=== PATIENT | female | born 1995 | race Two or more races ===

== ENCOUNTER 2022-12-02 09:17 | Emergency (ER) | payer OTHER ==
[2022-12-02 09:46] LABS: BILIRUBIN,URINE NEGATIVE (NEGATIVE); GLUCOSE, URINE (UA) NEGATIVE (NEGATIVE); KETONES,URINE (UA) NEGATIVE (NEGATIVE); LEUKOCYTE ESTERASE, URINE NEGATIVE (NEGATIVE); NITRITE,URINE NEGATIVE (NEGATIVE); OCCULT BLOOD,URINE SMALL (NEGATIVE); PROTEIN,URINE TRACE mg/dL (NEGATIVE); UROBILINOGEN,URINE 0.2 (NORMAL) E.U./dL (NORMAL)
[2022-12-02 09:47] LABS: CLARITY,URINE CLEAR (CLEAR); HCG UR QUAL NEGATIVE
[2022-12-02 10:00] LABS: BACTERIA,URINE Rare /HPF (None Seen); RBC,URINE 0-5 /HPF (0-5); SQUAMOUS EPITHELIAL CELL,UR MANY Squamous (<= Few)
[2022-12-02] MEDS ORDERED: SODIUM CHLORIDE 0.9% 1,000 ML IV STA (10:27)
[2022-12-02] MEDS ORDERED: ONDANSETRON 4 MG/2 ML VIAL IVP STA (10:27)
[2022-12-02] MEDS ORDERED: KETOROLAC 30 MG/ML VIAL IVP STA (10:27)
[2022-12-02] MEDS ORDERED: ACETAMINOPHEN 325 MG TABLET PO STA (10:27)
[2022-12-02] MEDS ORDERED: KETOROLAC 15 MG/ML VIAL IVP STA (10:30)
[2022-12-02 10:43] LABS: BASOPHILS % (AUTO) 0.2 %; HGB - HEMOGLOBIN 13.7 g/dL (12.0-16.0); LYMPHOCYTES % (AUTO) 6.3 %; MEAN CORPUSCULAR HEMOGLOBIN 31.3 pg (27.0-31.0); MEAN CORPUSCULAR HGB CONC 33.4 g/dL (32.0-36.0); MEAN CORPUSCULAR VOLUME 93.6 fL (81.0-99.0); MEAN PLATELET VOLUME 9.8 fL (7.9-10.8); MONOCYTES % (AUTO) 8.3 %; PLT - PLATELET COUNT 208 10^3/uL (130-450); RED BLOOD COUNT 4.38 10^6/uL (4.20-5.40); RED CELL DISTRIBUTION WIDTH 12.5 % (12.0-15.0); WHITE BLOOD COUNT 23.9 x10^3/uL (4.8-10.8)
[2022-12-02 10:45] LABS: SLIDE REVIEW? Indicated
[2022-12-02 10:47] LABS: ABNORMAL LYMPHS % (MANUAL) 0 %
[2022-12-02 10:56] LABS: ALBUMIN/GLOBULIN RATIO 1.5 (1.0-2.2); BILIRUBIN,TOTAL 0.8 mg/dL (0.2-1.0); CALCIUM 9.3 mg/dL (8.5-10.3); CREATININE 0.8 mg/dL (0.6-1.3); POTASSIUM 3.6 mmol/L (3.5-4.5); TOTAL PROTEIN 6.7 g/dL (6.4-8.9)
[2022-12-02 11:05] LABS: BAND NEUTROPHILS % (MANUAL) 7 %; LYMPHOCYTES # (MANUAL) 1.2 10^3/uL (1.5-3.5); LYMPHOCYTES % (MANUAL) 5 %; MONOCYTES # (MANUAL) 1.7 10^3/uL (0.0-1.0); PLATELET MORPHOLOGY NORMAL APPEARANCE (NORMAL); RBC MORPHOLOGY (MULTIPLE) NORMAL APPEARANCE (NORMAL)
[2022-12-02 11:06] LABS: DIFFERENTIAL COMMENT MANUAL DIFFERENTIAL; PLATELET ESTIMATE, MANUAL NORMAL (130-450,000) (NORMAL); WBC MORPHOLOGY (MULTIPLE) NORMAL APPEARANCE (NORMAL)
[2022-12-02 11:33] LABS: B. PARAPERTUSSIS- RESP PCR PAN NOT DETECTED; B. PERTUSSIS- RESP PCR PANEL NOT DETECTED; C. PNEUMONIAE- RESP PCR PANEL NOT DETECTED; CORONAVIRUS 229E-RESP PCR NOT DETECTED; CORONAVIRUS HKU1-RESP PCR NOT DETECTED; CORONAVIRUS NL63-RESP PCR NOT DETECTED; CORONAVIRUS OC43-RESP PCR NOT DETECTED; HUMAN METAPNEUMOVIRUS NOT DETECTED; INFLUENZA A- RESP PCR PANEL NOT DETECTED; INFLUENZA B - RESP PCR PANEL NOT DETECTED; M. PNEUMONIAE- RESP PCR PANEL NOT DETECTED; PARAINFLUENZA VIRUS 1 NOT DETECTED; PARAINFLUENZA VIRUS 2 NOT DETECTED; PARAINFLUENZA VIRUS 3 NOT DETECTED; PARAINFLUENZA VIRUS 4 NOT DETECTED; RHINOVIRUS/ENTEROVIRUS DETECTED; RSV- RESP PCR PANEL NOT DETECTED; SARS-CoV-2 -RESP PCR PANEL NOT DETECTED
[2022-12-02 11:49] VITALS: BP 97/57; O2SAT 98
[2022-12-02] MEDS ORDERED: iohexoL-300 100 ML VIAL IVP ONE (12:46)
--- NOTE | 2022-12-02 12:54 | CT Report ---
PROCEDURE: CT abdomen and pelvis with contrast INDICATIONS: LLQ abd pain, fever TECHNIQUE: Helical axial CT of the abdomen and pelvis was obtained after intravenous contrast adminis tration and reformatted in multiple planes. Radiation dose reduction was achieved using automated exp osure control or adjustment of mA and/or kV according to patient size. COMPARISON: 04/15/2022 FINDINGS: Lower thorax: The lung bases are clear. Heart size normal. No hiatal hernia. Liver: Normal in size and attenuation. No contour deformity present. Biliary system: No calcified cholelithiasis or pericholecystic inflammation. No evidence of bile du ct dilatation. Pancreas: Unremarkable without mass or inflammation evident. Spleen: Normal in size and density. Adrenals: Normal morphology and density. Reproductive system: Unremarkable as visualized. Urinary system: Wedge-shaped hypoenhancement of the left kidney with generalized left renal edema an d perinephric stranding, all consistent with acute pyelonephritis. Right kidney unremarkable. No hydr onephrosis bilaterally. Gastrointestinal system: The bowel appears unremarkable with no evidence of bowel obstruction or inf lammation. The stomach appears unremarkable. Appendix: Normal appendix identified Peritoneal spaces: No mesenteric or retroperitoneal adenopathy. No free air. No free fluid. Vasculature: The IVC, aorta and iliac vasculature are unremarkable. Abdominal wall: Abdominal wall is intact without evidence of ventral or inguinal hernias. Musculoskeletal: Normal bone mineralization. No acute fractures. IMPRESSION: Left renal pyelonephritis. No abscess or hydronephrosis. Reviewed by: Kameron Han MD on 12/02/2022 11:53 AM [facility] Approved by: Kameron Han MD on 12/02/2022 11:53 AM [facility] Station ID: [id number]
[2022-12-02] MEDS ORDERED: levoFLOXacin 250 MG TABLET PO STA (13:03)
--- NOTE | 2022-12-02 13:23 | ED Physician Documentation ---
History of Present Illness - Stated complaint Stated Complaint: CHILLS/COLD SWEAT - Chief complaint Chief Complaint: Fever - History obtained from History obtained from: Patient - Additonal information Additional information: The patient comes to the emergency department chief complaint of fever, chills, and left flank pain that started yesterday. She had a wisdom tooth extraction about 3 days ago and states that she has had some swelling and pain in her bilateral mandibular areas but no drainage from the extraction sites, both of which were from the mandible. She states that she has had a mild sore throat, but no rhinorrhea or cough. She has a headache. No dysuria or hematuria. No frequency. She has been trying to drink water. Patient states she does have some nausea, and feels that if she were to try to drink something now, she did not vomiting. No sick contacts. No other complaints at this time. She is otherwise healthy and is not known to be . PD PAST MEDICAL HISTORY - Past Medical History Past Medical History: Yes : Chronic bladder infection - Present Medications Home Medications: Ambulatory Orders Medication Instructions Recorded Confirmed HYDROcod/ACETAM 5/325 [[place] 5/325] 1 - 2 tab PO Q6H PRN #15 tablet 04/15/22 12/02/22 Ibuprofen [Motrin] 600 mg PO Q6H PRN #30 tab 04/15/22 12/02/22 Ondansetron Odt [Zofran] 4 mg TL Q6H PRN #14 tablet 12/02/22 levoFLOXacin [Levaquin] 500 mg PO QD 14 Days #28 tablet 12/02/22 - Allergies Allergies/Adverse Reactions: Allergies Allergy/AdvReac Type Severity Reaction Status Date / Time No Known Drug Allergies Allergy Verified 12/02/22 09:30 - Social History Does the pt smoke?: No Smoking Status: Never smoker PD ED PE NORMAL - Vitals Vital signs reviewed: Yes - General General: Alert and oriented X 3, No acute distress, Well developed/nourished, Other (The patient appears mildly uncomfortable but otherwise no apparent distress.) - HEENT HEENT: Atraumatic, PERRL, EOMI, Moist mucous membranes, Pharynx benign, Other (Bilateral mandibular third molar extraction sites appear to have healthy tissue and without drainage. Moderate edema. Appropriate tenderness. Dentition otherwise good.) - Neck Neck: Supple, no meningeal sign - Cardiac Cardiac: RRR, No murmur, Strong equal pulses - Respiratory Respiratory: No respiratory distress, Clear bilaterally - Abdomen Abdomen: Soft, Non distended, Other (Left flank tenderness, no rebound or guarding.) - Back Back: Other (Mild left CVA tenderness.) - Derm Derm: Normal color, Warm and dry, No rash - Extremities Extremities: No deformity, No edema - Neuro Neuro: Alert and oriented X 3, Other (Grossly intact.) - Psych Psych: Normal mood, Normal affect Results - Vitals Vitals: Vital Signs - 24 hr 12/02/22 12/02/22 09:27 11:41 Temperature 38.2 C H 37.1 C Heart Rate 147 H 105 H Respiratory 20 20 Rate Blood Pressure 118/68 97/57 L O2 Saturation 99 98 Oxygen O2 Source Room air - Labs Labs: Laboratory Tests 12/02/22 12/02/22 12/02/22 09:32 10:20 10:39 WBC 23.9 H RBC 4.38 Hgb 13.7 Hct 41.0 MCV 93.6 MCH 31.3 H MCHC 33.4 RDW 12.5 Plt Count 208 MPV 9.8 Neut # (Auto) Not Reportable Lymph # (Auto) Not Reportable [place] # (Auto) Not Reportable Eos # (Auto) Not Reportable Baso # (Auto) Not Reportable Absolute Nucleated RBC Not Reportable Total Counted 100 Band Neuts % (Manual) 7 Abnorm Lymph % (Manual) 0 Nucleated RBC % Not Reportable Neutrophils # (Manual) 21.0 H Lymphocytes # (Manual) 1.2 L Monocytes # (Manual) 1.7 H Eosinophils # (Manual) 0.0 Basophils # (Manual) 0.0 Differential Comment MANUAL DIFFERENTIAL Manual Slide Review Indicated WBC Morphology NORMAL APPEARANCE Platelet Estimate NORMAL (130-450,000) Platelet Morphology NORMAL APPEARANCE RBC Morph Micro Appear NORMAL APPEARANCE Sodium Potassium Chloride Carbon Dioxide Anion Gap BUN Creatinine Estimated GFR (MDRD) Glucose Calcium Total Bilirubin AST ALT Alkaline Phosphatase Total Protein Albumin Globulin Albumin/Globulin Ratio Lipase Urine Color YELLOW Urine Clarity CLEAR Urine pH 6.0 Ur Specific [place] 1.010 Urine Protein TRACE Urine Glucose (UA) NEGATIVE Urine Ketones NEGATIVE Urine Occult Blood SMALL H Urine Nitrite NEGATIVE Urine Bilirubin NEGATIVE Urine Urobilinogen 0.2 (NORMAL) Ur Leukocyte Esterase NEGATIVE Urine RBC 0-5 Urine WBC 4-5 Ur Squamous Epith Cells MANY Squamous H Urine Bacteria Rare Ur Microscopic Review INDICATED Urine Culture Comments NOT INDICATED Urine HCG, Qual NEGATIVE Nasal Adenovirus (PCR) NOT DETECTED Nasal B. parapertussis DNA (PCR) NOT DETECTED Nasal Coronavir 229E PCR NOT DETECTED Nasal Coronavir HKU1 PCR NOT DETECTED Nasal Coronavir NL63 PCR NOT DETECTED Nasal Coronavir OC43 PCR NOT DETECTED Nasal Enterovir/Rhinovir PCR DETECTED A Nasal Influenza B PCR NOT DETECTED Nasal Influenza A PCR NOT DETECTED Nasal Parainfluen 1 PCR NOT DETECTED Nasal Parainfluen 2 PCR NOT DETECTED Nasal Parainfluen 3 PCR NOT DETECTED Nasal Parainfluen 4 PCR NOT DETECTED Nasal RSV (PCR) NOT DETECTED Nasal B.pertussis DNA PCR NOT DETECTED Nasal C.pneumoniae (PCR) NOT DETECTED [place]vin Human Metapneumo PCR NOT DETECTED Nasal M.pneumoniae (PCR) NOT DETECTED Nasal SARS-CoV-2 (PCR) NOT DETECTED 12/02/22 10:39 WBC RBC Hgb Hct MCV MCH MCHC RDW Plt Count MPV Neut # (Auto) Lymph # (Auto) [place] # (Auto) Eos # (Auto) Baso # (Auto) Absolute Nucleated RBC Total Counted Band Neuts % (Manual) Abnorm Lymph % (Manual) Nucleated RBC % Neutrophils # (Manual) Lymphocytes # (Manual) Monocytes # (Manual) Eosinophils # (Manual) Basophils # (Manual) Differential Comment Manual Slide Review WBC Morphology Platelet Estimate Platelet Morphology RBC Morph Micro Appear Sodium 135 Potassium 3.6 Chloride 103 Carbon Dioxide 25 Anion Gap 7.0 BUN 12 Creatinine 0.8 Estimated GFR (MDRD) 87 L Glucose 121 H Calcium 9.3 Total Bilirubin 0.8 AST 12 ALT 9 L Alkaline Phosphatase 55 Total Protein 6.7 Albumin 4.0 Globulin 2.7 Albumin/Globulin Ratio 1.5 Lipase 11 Urine Color Urine Clarity Urine pH Ur Specific [place] Urine Protein Urine Glucose (UA) Urine Ketones Urine Occult Blood Urine Nitrite Urine Bilirubin Urine Urobilinogen Ur Leukocyte Esterase Urine RBC Urine WBC Ur Squamous Epith Cells Urine Bacteria Ur Microscopic Review Urine Culture Comments Urine HCG, Qual Nasal Adenovirus (PCR) Nasal B. parapertussis DNA (PCR) Nasal Coronavir 229E PCR Nasal Coronavir HKU1 PCR Nasal Coronavir NL63 PCR Nasal Coronavir OC43 PCR Nasal Enterovir/Rhinovir PCR Nasal Influenza B PCR Nasal Influenza A PCR Nasal Parainfluen 1 PCR Nasal Parainfluen 2 PCR Nasal Parainfluen 3 PCR Nasal Parainfluen 4 PCR Nasal RSV (PCR) Nasal B.pertussis DNA PCR Nasal C.pneumoniae (PCR) [place] Human Metapneumo PCR Nasal M.pneumoniae (PCR) Nasal SARS-CoV-2 (PCR) - Rads (name of study) CT abdomen and pelvis with IV contrast Relevant Findings:: Final report received, See rad report (Left pyelonephritis. No hydronephrosis.) PD Medical Decision Making - ED course Complexity details: reviewed results, re-evaluated patient, considered diff erential, d/w patient, d/w family ED course: The patient was started on a liter of IV fluids with administration of IV Zofran and then oral Tylenol. She was also given an IV dose of Toradol. The patient was worked up with labs including ER abdominal panel, CBC, and blood cultures. Respiratory PCR panel was also performed. Urinalysis was performed and mildly contaminated but otherwise negative. Her PCR panel showed a positive rhino/enterovirus. White blood cell count was 23,000, which was the reason for the addition of the blood cultures. CT scan showed pyelonephritis without any evidence of obstruction. The pyelonephritis was on the left, corresponding with the patient's discomfort. I did go and reevaluate the patient he was found to be feeling much better after symptomatic intervention. She was given a dose of Levaquin here in the ED. I discussed with her that her CT has shown significant evidence of left pyelonephritis, despite her negative urinalysis. While this is somewhat unusual, I feel that we should treat as pyelonephritis regardless. The patient also was positive for rhinovirus which certainly could cause fever as well. We have discussed that this will be a self-limited illness, given its viral nature. The patient does understand the importance of taking the antibiotics every day for her pyelo-. We have discussed the need for prompt return to the emergency department, should she feel she is worsening. We discussed fever control at home and the need to stay hydrated. Departure - Departure Disposition: 01 Home, Self Care Clinical Impression: Pyelonephritis, Rhinovirus infection Condition: Stable Instructions: ED Kidney Infec Female, ED Viral Syndrome Prescriptions: levoFLOXacin [Levaquin] 500 mg PO QD 14 Days #28 tablet Ondansetron Odt [Zofran] 4 mg TL Q6H PRN #14 tablet PRN Reason: Nausea / Vomiting Comments: As we discussed, your viral panel is positive for rhinovirus and your CT scan shows a left-sided kidney infection. Given your symptoms, as well as the fact that your white blood cell count is significantly elevated, we should treat the kidney infection with antibiotics, even though your urinalysis actually came out negative. While this is unusual, it does not necessarily mean that you do not have a kidney infection. You have been given your first dose of antibiotics here in the emergency department and will need to take your next dose tomorrow. A prescription for your antibiotics and nausea medicine has been electronically transmitted to the [facility] pharmacy in [place] your request. It is i mportant that you get plenty of water to drink and also, will feel a lot better if you treat the fevers regularly with ibuprofen and/or Tylenol. You may take ibuprofen 600 mg every 6 hours and/or Tylenol 650 mg every 4 hours. These 2 medications are unrelated and will not cause harm if taken together. Please take the nausea medication as needed, preferably before you need to take your other meds in order to increase the chances of the other medications staying down. You will most likely continue to feel ill for the next several days to a week but should start to improve after that. If you feel like you are drastically worsening, then please return for reevaluation.
--- NOTE | 2022-12-03 04:20 | ED Physician Documentation ---
ED Addendum - Addendum Addendum: 12/03/22 04:19 Patient blood cultures reviewed. Positive for gram-negative rods, likely E. coli. Chart reviewed. Patient treated with IV antibiotics here in the emergency department for significant leukocytosis and likely pyelonephritis. Given newly identified bacteremia will have patient return to the emergency department for reevaluation.
== END 2022-12-02 13:44 | disposition home or self-care (01) ==
LOC: ED 09:17
DX: N12 Tubulo-interstitial nephritis, not specified as acute or chronic (principal); B34.8 Other viral infections of unspecified site; R78.81 Bacteremia; Z20.822 Contact with and (suspected) exposure to COVID-19
CPT/HCPCS: 36415; 74177; 80053; 81001; 81025; 83690; 85025; 87040; 87150; 87181; 87633; 96374; 99284; A9270; Q9967; 81003; 87086

== ENCOUNTER 2022-12-03 05:38 | Inpatient (IN) | payer OTHER ==
[2022-12-03] MEDS ORDERED: SODIUM CHLORIDE 0.9% 1,000 ML IV STA ×2 (06:25→07:38)
[2022-12-03] MEDS ORDERED: ACETAMINOPHEN 325 MG TABLET PO STA (06:25)
[2022-12-03 06:46] LABS: BASOPHILS # (AUTO) 0.1 10^3/uL (0.0-0.1); BASOPHILS % (AUTO) 0.3 %; EOSINOPHILS # (AUTO) 0.1 10^3/uL (0.0-0.7); EOSINOPHILS % (AUTO) 0.4 %; HCT - HEMATOCRIT 40.2 % (37.0-47.0); HGB - HEMOGLOBIN 13.1 g/dL (12.0-16.0); LYMPHOCYTES # (AUTO) 1.3 10^3/uL (1.5-3.5); LYMPHOCYTES % (AUTO) 6.5 %; MEAN CORPUSCULAR HGB CONC 32.6 g/dL (32.0-36.0); MONOCYTES # (AUTO) 1.6 10^3/uL (0.0-1.0); MONOCYTES % (AUTO) 8.3 %; NEUTROPHILS # (AUTO) 16.3 10^3/uL (1.5-6.6); NEUTROPHILS % (AUTO) 83.6 %; PLT - PLATELET COUNT 209 10^3/uL (130-450); RED BLOOD COUNT 4.23 10^6/uL (4.20-5.40); RED CELL DISTRIBUTION WIDTH 12.5 % (12.0-15.0); WHITE BLOOD COUNT 19.5 x10^3/uL (4.8-10.8)
[2022-12-03 06:47] LABS: SLIDE REVIEW? Indicated
[2022-12-03 06:50] LABS: BILIRUBIN,URINE NEGATIVE (NEGATIVE); GLUCOSE, URINE (UA) NEGATIVE (NEGATIVE); KETONES,URINE (UA) >=80 mg/dL (NEGATIVE); LEUKOCYTE ESTERASE, URINE NEGATIVE (NEGATIVE); NITRITE,URINE NEGATIVE (NEGATIVE); OCCULT BLOOD,URINE SMALL (NEGATIVE); PROTEIN,URINE 100 mg/dL (NEGATIVE); UROBILINOGEN,URINE 2 E.U./dL (NORMAL)
[2022-12-03 06:59] LABS: CLARITY,URINE CLEAR (CLEAR)
[2022-12-03 07:04] LABS: ALBUMIN 3.9 g/dL (3.2-5.5); ALBUMIN/GLOBULIN RATIO 1.3 (1.0-2.2); BILIRUBIN,TOTAL 0.9 mg/dL (0.2-1.0); CALCIUM 9.6 mg/dL (8.5-10.3); CREATININE 0.8 mg/dL (0.6-1.3); POTASSIUM 3.5 mmol/L (3.5-4.5); TOTAL PROTEIN 6.8 g/dL (6.4-8.9)
[2022-12-03 07:10] LABS: RBC MORPHOLOGY (MULTIPLE) 1+ ANISOCYTOSIS (NORMAL)
[2022-12-03 07:14] LABS: BACTERIA,URINE Few /HPF (None Seen); RBC,URINE 0-5 /HPF (0-5); SQUAMOUS EPITHELIAL CELL,UR MOD Squamous (<= Few); WBC CLUMPS,URINE PRESENT
--- NOTE | 2022-12-03 07:17 | ED Physician Documentation ---
PD HPI ABD PAIN - Stated complaint Stated Complaint: ABNORMAL LABS - Chief complaint Chief Complaint: Fever - History obtained from History obtained from: Patient - History of Present Illness Timing - onset: How many days ago (few) Timing - duration: Days (few) Timing - details: Gradual onset, Still present Quality: Cramping, Aching, Pain Location: Periumbilical, LLQ Radiation: Left flank Improved by: Laying still Worsened by: Moving. No: Breathing Associated symptoms: Fever, Nausea, Dysuria. No: Diarrhea, Constipation Similar symptoms before: Has not had sx before Recently seen: Emergency Dept (seen yesterday with these symptoms and Dx with pyelopnehrotiiis with UA not too bad but CT showing pyelo. Blood cultures showing positive by [facility] for E Coli. Pt called to return to ED. Not feeling much improved at home. Still fever, flank pain, nausea.) Review of Systems Constitutional: reports: Fever, Chills, Myalgias Nose: denies: Rhinorrhea / runny nose, Congestion Throat: denies: Sore throat Respiratory: denies: Cough GI: reports: Abdominal Pain, Nausea. denies: Diarrhea : reports: Dysuria. denies: Discharge Skin: denies: Rash PD PAST MEDICAL HISTORY - Past Medical History Past Medical History: Yes Cardiovascular: None Respiratory: None Endocrine/Autoimmune: None : Chronic bladder infection - Past Surgical History Past Surgical History: Yes HEENT: Other - Present Medications Home Medications: Ambulatory Orders Medication Instructions Recorded Confirmed Ondansetron Odt [Zofran] 4 mg TL Q6H PRN #14 tablet 12/02/22 12/03/22 levoFLOXacin [Levaquin] 500 mg PO QD 14 Days #28 tablet 12/02/22 12/03/22 - Allergies Allergies/Adverse Reactions: Allergies Allergy/AdvReac Type Severity Reaction Status Date / Time No Known Drug Allergies Allergy Verified 12/03/22 06:14 - Social History Does the pt smoke?: No Smoking Status: Never smoker Does the pt drink ETOH?: Yes ETOH Use: Wine, Beer, Liquor Does the pt have substance abuse?: No - Immunizations Immunizations are current?: Yes - POLST Patient has POLST: No PD ED PE NORMAL - Vitals Vital signs reviewed: Yes (tchycardic and febrile initially.) - General General: Alert and oriented X 3, No acute distress, Well developed/nourished - Neck Neck: Supple, no meningeal sign, No adenopathy - Cardiac Cardiac: No murmur. No: RRR (regular but tachy, improved with fluids and TYlenol. ) - Respiratory Respiratory: No respiratory distress, Clear bilaterally - Abdomen Abdomen: Normal bowel sounds, Soft, Non distended, No organomegaly, Other (sometender without guarding suprapubic area. Left flank tender as well. ) - Female Female : Deferred - Rectal Rectal: Deferred - Derm Derm: Normal color, Warm and dry - Extremities Extremities: No edema, No calf tenderness / cord - Neuro Neuro: Alert and oriented X 3, No motor deficit, Normal speech Results - Vitals Vitals: Vital Signs - 24 hr 12/03/22 12/03/22 12/03/22 06:09 07:01 09:00 Temperature 39.4 C H 39.4 C H 36.7 C Heart Rate 144 H 120 H 71 Respiratory 18 16 14 Rate Blood Pressure 109/65 99/65 91/60 O2 Saturation 96 100 100 12/03/22 11:35 Temperature Heart Rate 90 Respiratory 18 Rate Blood Pressure 123/91 H O2 Saturation 100 Oxygen O2 Source Room air - Labs Labs: Microbiology 12/03/22 06:40 Blood Culture - Preliminary Blood - Right Arm 12/03/22 06:30 Blood Culture - Preliminary Blood - Left Arm Laboratory Tests 12/03/22 12/03/22 12/03/22 06:30 06:40 06:40 WBC 19.5 H RBC 4.23 Hgb 13.1 Hct 40.2 MCV 95.0 MCH 31.0 MCHC 32.6 RDW 12.5 Plt Count 209 MPV 10.0 Neut # (Auto) 16.3 H Lymph # (Auto) 1.3 L [place] # (Auto) 1.6 H Eos # (Auto) 0.1 Baso # (Auto) 0.1 Absolute Nucleated RBC 0.00 Nucleated RBC % 0.0 Manual Slide Review Indicated RBC Morph Micro Appear 1+ ANISOCYTOSIS Sodium 137 Potassium 3.5 Chloride 104 Carbon Dioxide 25 Anion Gap 8.0 BUN 11 Creatinine 0.8 Estimated GFR (MDRD) 87 L Glucose 112 H Lactic Acid 1.2 Calcium 9.6 Total Bilirubin 0.9 AST 15 ALT 12 Alkaline Phosphatase 62 Total Protein 6.8 Albumin 3.9 Globulin 2.9 Albumin/Globulin Ratio 1.3 Lipase 12 Urine Color Urine Clarity Urine pH Ur Specific [place] Urine Protein Urine Glucose (UA) Urine Ketones Urine Occult Blood Urine Nitrite Urine Bilirubin Urine Urobilinogen Ur Leukocyte Esterase Urine RBC Urine WBC Urine WBC Clumps Ur Squamous Epith Cells Urine Bacteria Ur Microscopic Review Urine Culture Comments 12/03/22 06:40 WBC RBC Hgb Hct MCV MCH MCHC RDW Plt Count MPV Neut # (Auto) Lymph # (Auto) [place] # (Auto) Eos # (Auto) Baso # (Auto) Absolute Nucleated RBC Nucleated RBC % Manual Slide Review RBC Morph Micro Appear Sodium Potassium Chloride Carbon Dioxide Anion Gap BUN Creatinine Estimated GFR (MDRD) Glucose Lactic Acid Calcium Total Bilirubin AST ALT Alkaline Phosphatase Total Protein Albumin Globulin Albumin/Globulin Ratio Lipase Urine Color YELLOW Urine Clarity CLEAR Urine pH 7.0 Ur Specific [place] 1.015 Urine Protein 100 H Urine Glucose (UA) NEGATIVE Urine Ketones >=80 H Urine Occult Blood SMALL H Urine Nitrite NEGATIVE Urine Bilirubin NEGATIVE Urine Urobilinogen 2 H Ur Leukocyte Esterase NEGATIVE Urine RBC 0-5 Urine WBC 6-10 H Urine WBC Clumps PRESENT Ur Squamous Epith Cells MOD Squamous H Urine Bacteria Few Ur Microscopic Review INDICATED Urine Culture Comments NOT INDICATED PD Medical Decision Making - ED course Complexity details: reviewed old records (ED visit and CT results/report from yesterday. Blood culture reviewed. ), reviewed results, considered differential, d/w patient, d/w continuous improvement consultant (hospitalist) ED course: Seen yesterday for flank pain and fevers with diagnosis UTI/pyelo-. CT scan did not show any stones or obstruction. Started on Levaquin. Still having fevers overnight. Had a positive ZYB blood culture for E. coli and called back. Initially tachycardic and febrile here which improved with IV fluids. White count elevated. Lactic acid normal. Lytes are okay. Had CT yesteday showing pyelonephritis without obstruction nor stones. I did not see need for repeat imaging. She is feeling improved fever and genearl weakness with some IV fluids. Given IV dose of antibiotics. Was given Levaquin yesteday so continued with Quinolone today with IV Cipro. Also IV toradol and Zofran. Departure - Departure Disposition: 66 [facility] DC/Xfer Clinical Impression: Bacteremia, UTI (urinary tract infection) Condition: Stable Record reviewed to determine appropriate education?: Yes Discharge Date/Time: 12/03/22 13:03
[2022-12-03] MEDS ORDERED: KETOROLAC 15 MG/ML VIAL IVP STA (07:38)
[2022-12-03] MEDS ORDERED: ONDANSETRON 4 MG/2 ML VIAL IVP STA (07:38)
[2022-12-03] MEDS ORDERED: CIPROFLOXACIN 400 MG/200 ML 400 MG/200 ML BAG IV STA (07:39)
[2022-12-03] MEDS ORDERED: SODIUM CHLORIDE FLUSH 0.9% 10 ML SYRINGE IVP PRN (12:47)
[2022-12-03] MEDS ORDERED: ONDANSETRON 4 MG/2 ML VIAL IVP PRN (12:47)
--- NOTE | 2022-12-03 12:57 | HISTORY & PHYSICAL EXAMINATION ---
Chief Complaint - Chief Complaint Chief Complaint: Called back to hospital because of positive blood culture History of Present Illness - Admitted From Admitted From:: ED - History Obtained From History obtained from: ED provider and the patient - History of Present Illness HPI Comment/Other: This is a 27-year-old female with a history of UTI from a kidney stone several years ago. She had bilat wisdom teeth removed 4 days ago and did have some pain and still has swelling in that area. She also recently had an upper URI with nasal congestion and a cough. She presented to the ER yesterday afternoon with complaints of a fever and malaise and also L flank pain radiating into her L groin. Her work-up then showed she is Rhinovirus (+), she had a WBC of 23.9 and somewhat abnormal urinalysis, leading to a CT scan abd/pelvis that was read as having pyelonephritis. She was put on oral Levofloxacin and was discharged home. After just several hours, the blood cultures returned positive and she was contacted to come back into the ER now. Upon re-presentation today at 0600, she had a fever of 39.3 C and was tachycardic with rate 144. Blood pressure has been normal. Labs were repeated. Her lactic acid was normal. Her WBC has decreased to 19. The blood cx has been identified as growing E coli. She was given Tylenol and the fever and tachycardia have resolved. The ED provider spoke to me about this patient, to admit to the hospitalist team and treat her E. coli bacteremia, pyelonephritis and her rhinovirus symptoms. History - Past Medical History : reports: Chronic bladder infection, Kidney stones MRSA Hx?: No - Past Surgical History HEENT: reports: Other - Family & Social History Living arrangement: At home Living Situation: With spouse/s.o. Social History Notes: She does not smoke, drinks alcohol socially. She takes no illicit drugs. She is normally on no prescription medicines. She works as a snack bar cashier - Substance History Use: Uses substance without health or social issues: NONE - POLST Patient has POLST: No Meds/Allgy - Home Medications Home Medications: Ambulatory Orders Medication Instructions Recorded Confirmed Ondansetron Odt [Zofran] 4 mg TL Q6H PRN #14 tablet 12/02/22 12/03/22 levoFLOXacin [Levaquin] 500 mg PO QD 14 Days #28 tablet 12/02/22 12/03/22 - Allergies Allergies/Adverse Reactions: Allergies Allergy/AdvReac Type Severity Reaction Status Date / Time No Known Drug Allergies Allergy Verified 12/03/22 06:14 Review of Systems - Constitutional Constitutional: reports: Fever, Chills, Malaise - Ears, Nose & Throat Ears, Nose & Throat: reports: Dental pain (Had wisdom teeth removed sev days ago, still has swelling) - Musculoskeletal Musculoskeletal: reports: Muscle pain, Other (L flank pain) - All Other Systems All Other Systems: reports: Reviewed and negative Exam - Vital Signs Reviewed Vital Signs: Yes Vital Signs: Vital Signs x48h Temp Pulse Resp BP Pulse Ox 12/03/22 11:35 90 18 123/91 H 100 12/03/22 09:00 36.7 C 71 14 91/60 100 12/03/22 07:01 39.4 C H 120 H 16 99/65 100 12/03/22 06:09 39.4 C H 144 H 18 109/65 96 - Physical Exam General Appearance: positive: No acute distress, Alert Eyes Bilateral: positive: Normal inspection ENT: positive: Other (Bilat lower jaw swelling, no tenderness to palp) Neck: positive: Nml inspection, No JVD Respiratory: positive: No respiratory distress, Breath sounds nml Cardiovascular: positive: Regular rate & rhythm, No murmur Abdomen: positive: Nml bowel sounds, No distention, Other (L flank pain) Skin: positive: Warm, Dry Extremities: positive: Non-tender, No pedal edema Neurologic/Psychiatric: positive: Oriented x3, CN's nml (2-12), Motor nml Sepsis Event Note (H) - Evaluation Current Stage of Sepsis: Sepsis Possible source of Sepsis: positive: Genitourinary - Sepsis Criteria Sepsis Criteria: Recorded Temperature greater than 38.3C or Less than 36C, Recorded Heart Rate greater than 90 bpm, WBC count greater than 12,000 or less than 4000 Conclusion/Plan - Problem List (1) Sepsis Conclusion/Plan: Patient presented with tachycardia heart rate 144, fever of 39.4 C and elevated WBC of 23 then 19. The source appears to be her urine and pyelonephritis Plan: Continue with IV fluids Continue with IV antibiotics Follow WBC daily (2) E coli bacteremia Conclusion/Plan: As per (+) blood cultures Plan: Continue with empiric IV antibiotic, will use ceftriaxone Await sensitivity results to tailor antibiotics We will plan to repeat blood cultures in 48 hours to assure that those repeat cultures have negative growth Would plan a 7 to 10-day total course of antibiotics Start a probiotic (3) Pyelonephritis Conclusion/Plan: As per CT imaging Plan: We will give pain medications as needed Continue with the IV antibiotics (4) Rhinovirus infection Conclusion/Plan: Plan: Symptomatic treatment Respiratory droplet isolation will be ordered - Lab Results Fish Bones: 12/03/22 06:40 12/03/22 06:40 - Diagnostic Imaging Results Diagnostic Imaging Results: positive: Final report reviewed - Other Other Results/Comments: Attestation: The patient is expected to be hospitalized for greater than 2 midnights and is expected to be discharged or transferred to another facility wi thin 96 hours: Yes.
[2022-12-03] MEDS: SODIUM CHLORIDE 0.9% 1,000 ML IV SCH ×2 (13:57→23:57)
[2022-12-03] MEDS: ACETAMINOPHEN 325 MG TABLET PO PRN ×2 (15:14→20:27)
--- NOTE | 2022-12-03 16:08 | PHARMACY PROGRESS NOTE ---
- Best Possible Medication History Admit Date and Time: 12/03/22 1247 Processed by: Nursing Medication History completed: Yes Secondary Source(s): Insurance records As the person ultimately responsible for medication therapy, providers are able to order a medication from an existing home medication list in [facility] via the "Reconcile Routine" prior to Confirmation of that medication by aircraft life support fitter. Such practice is discouraged except when the physician, in their clinical judgment, deems that a medical need exists for a medication without regard to previous use.
[2022-12-03] MEDS: SODIUM CHLORIDE FLUSH 0.9% 10 ML SYRINGE IVP SCH (17:12)
[2022-12-03] MEDS ORDERED: HYDROcod/ACETAM 5/325 MG TABLET PO PRN (17:29)
[2022-12-04] MEDS: ACETAMINOPHEN 325 MG TABLET PO PRN ×3 (05:36→18:40)
[2022-12-04 05:47] LABS: BASOPHILS % (AUTO) 0.3 %; EOSINOPHILS % (AUTO) 0.1 %; HCT - HEMATOCRIT 32.3 % (37.0-47.0); HGB - HEMOGLOBIN 10.8 g/dL (12.0-16.0); LYMPHOCYTES % (AUTO) 9.9 %; MEAN CORPUSCULAR HEMOGLOBIN 31.8 pg (27.0-31.0); MEAN CORPUSCULAR HGB CONC 33.4 g/dL (32.0-36.0); MEAN PLATELET VOLUME 10.1 fL (7.9-10.8); MONOCYTES # (AUTO) 0.8 10^3/uL (0.0-1.0); MONOCYTES % (AUTO) 7.8 %; NEUTROPHILS # (AUTO) 8.4 10^3/uL (1.5-6.6); NEUTROPHILS % (AUTO) 81.1 %; PLT - PLATELET COUNT 158 10^3/uL (130-450); RED CELL DISTRIBUTION WIDTH 12.6 % (12.0-15.0); WHITE BLOOD COUNT 10.3 x10^3/uL (4.8-10.8)
[2022-12-04 05:53] LABS: INR 1.4 (0.8-1.2); PT - PROTHROMBIN TIME 14.9 secs (9.9-12.6)
[2022-12-04 06:00] LABS: CALCIUM 8.4 mg/dL (8.5-10.3); CREATININE 0.6 mg/dL (0.6-1.3); MAGNESIUM 1.6 mg/dL (1.7-2.3); POTASSIUM 3.5 mmol/L (3.5-4.5)
--- NOTE | 2022-12-04 09:27 | PROVIDER PROGRESS NOTE ---
Assessment/Plan - Problem List (1) Sepsis Qualifiers: Sepsis type: Escherichia coli Severe sepsis shock status: without septic shock Assessment/Plan: Improving Still has tachycardia, had a fever episode today during the day, improved after Tylenol given Continue IV antibiotics and IV fluid (2) E coli bacteremia Assessment/Plan: Improving, however still had fever episode Leukocytosis resolved Continue with IV ceftriaxone Repeat culture tomorrow in the morning Continue IV fluid (3) Pyelonephritis Assessment/Plan: This is a second episode in this year Patient reports history of kidney stone,However at this time there is no stone noted Recommend patient to follow-up with primary care physician if UTI recurrent again, may need to consider of prophylaxis - Current Meds Current Meds: Current Medications Generic Name Dose Route Start Last Admin Trade Name Freq PRN Reason Stop Dose Admin Acetaminophen 650 mg 12/03/22 12:47 12/04/22 05:36 Acetaminophen 325 Mg Tablet PO 650 mg Q4HR PRN Administration Pain 1 to 4, or Fever Hydrocodone Bitart/Acetaminophen 1 tab 12/03/22 17:29 12/03/22 22:50 Hydrocod/Acetam 5/325 Mg Tablet PO 1 tab Q6HR PRN Administration Severe Pain (Level 7-10) Sodium Chloride 1,000 mls @ 100 mls/hr 12/03/22 13:00 12/03/22 23:57 Normal Saline 0.9% IV 100 mls/hr .Q10H ABDOULAYE Administration Sodium Chloride 10 ml 12/03/22 17:00 12/04/22 00:00 Sodium Chloride Flush 0.9% 10 Ml Syringe IVP Not Given 0100,0900,1700 ABDOULAYE - Lab Result Fish Bone Diagrams: 12/04/22 05:34 12/04/22 05:34 Subjective - Subjective Patient Reports: Feeling Better, Back Pain, Fever Objective Vital Signs: Vital Signs - 24 hr 12/03/22 12/03/22 12/03/22 11:35 13:00 13:41 Temperature 36.7 C Heart Rate 90 90 Heart Rate [ Brachial] Heart Rate [ 86 Monitoring electrodes] Respiratory 18 18 Rate Blood Pressure 123/91 H 102/70 Blood Pressure 105/60 [Left Brachial artery] O2 Saturation 100 100 12/03/22 12/03/22 12/03/22 17:00 20:24 21:00 Temperature 38.2 C H 39.3 C H 39.3 C H Heart Rate Heart Rate [ Brachial] Heart Rate [ 100 98 Monitoring electrodes] Respiratory 16 16 Rate Blood Pressure Blood Pressure 117/74 109/69 [Left Brachial artery] O2 Saturation 100 12/03/22 12/03/22 12/03/22 22:13 22:48 23:56 Temperature 39.1 C H 100 C H 37.4 C Heart Rate Heart Rate [ Brachial] Heart Rate [ 90 Monitoring electrodes] Respiratory 16 Rate Blood Pressure Blood Pressure 104/53 L [Left Brachial artery] O2 Saturation 98 12/04/22 12/04/22 12/04/22 05:30 06:21 08:18 Temperature 39.6 C H 37.6 C 37.3 C Heart Rate Heart Rate [ 110 H 102 H Brachial] Heart Rate [ Monitoring electrodes] Respiratory 16 20 Rate Blood Pressure Blood Pressure 118/68 106/64 [Left Brachial artery] O2 Saturation 100 97 Oxygen O2 Source Room air I&O (Last 24 Hrs): Intake and Output Totals x24h 12/02/22 12/03/22 12/04/22 23:59 23:59 23:59 Intake Total 3210.000 120 Output Total 1 Balance 3209.000 120 General: Alert, Oriented x3 HEENT: PERRLA, EOMI Neck: Supple Neuro: Alert, Non Focal Cardiovascular: Regular rate Respiratory: No respiratory distress, Breath sounds nml Abdomen: Normal bowel sounds Extremities: No clubbing, No edema - Results Results: Laboratory Results WBC 10.3 x10^3/uL (4.8-10.8) 12/04/22 05:34 RBC 3.40 10^6/uL (4.20-5.40) L 12/04/22 05:34 Hgb 10.8 g/dL (12.0-16.0) L 12/04/22 05:34 Hct 32.3 % (37.0-47.0) L 12/04/22 05:34 MCV 95.0 fL (81.0-99.0) 12/04/22 05:34 MCH 31.8 pg (27.0-31.0) H 12/04/22 05:34 MCHC 33.4 g/dL (32.0-36.0) 12/04/22 05:34 RDW 12.6 % (12.0-15.0) 12/04/22 05:34 Plt Count 158 10^3/uL (130-450) 12/04/22 05:34 MPV 10.1 fL (7.9-10.8) 12/04/22 05:34 Neut # (Auto) 8.4 10^3/uL (1.5-6.6) H 12/04/22 05:34 Lymph # (Auto) 1.0 10^3/uL (1.5-3.5) L 12/04/22 05:34 [place] # (Auto) 0.8 10^3/uL (0.0-1.0) 12/04/22 05:34 Eos # (Auto) 0.0 10^3/uL (0.0-0.7) 12/04/22 05:34 Baso # (Auto) 0.0 10^3/uL (0.0-0.1) 12/04/22 05:34 Absolute Nucleated RBC 0.00 x10^3/uL 12/04/22 05:34 Nucleated RBC % 0.0 /100WBC 12/04/22 05:34 Manual Slide Review Indicated 12/03/22 06:40 RBC Morph Micro Appear 1+ ANISOCYTOSIS (NORMAL) 12/03/22 06:40 PT 14.9 secs (9.9-12.6) H 12/04/22 05:34 INR 1.4 (0.8-1.2) H 12/04/22 05:34 Sodium 137 mmol/L (135-145) 12/04/22 05:34 Potassium 3.5 mmol/L (3.5-4.5) 12/04/22 05:34 Chloride 108 mmol/L (101-111) 12/04/22 05:34 Carbon Dioxide 22 mmol/L (21-32) 12/04/22 05:34 Anion Gap 7.0 (6-13) 12/04/22 05:34 BUN 11 mg/dL (6-20) 12/04/22 05:34 Creatinine 0.6 mg/dL (0.6-1.3) 12/04/22 05:34 Estimated GFR (MDRD) 122 (>89) 12/04/22 05:34 Glucose 95 mg/dL (74-104) 12/04/22 05:34 Lactic Acid 1.2 mmol/L (0.5-2.2) 12/03/22 06:30 Calcium 8.4 mg/dL (8.5-10.3) L 12/04/22 05:34 Magnesium 1.6 mg/dL (1.7-2.3) L 12/04/22 05:34 Total Bilirubin 0.9 mg/dL (0.2-1.0) 12/03/22 06:40 AST 15 IU/L (10-42) 12/03/22 06:40 ALT 12 IU/L (10-60) 12/03/22 06:40 Alkaline Phosphatase 62 IU/L (42-121) 12/03/22 06:40 Total Protein 6.8 g/dL (6.4-8.9) 12/03/22 06:40 Albumin 3.9 g/dL (3.2-5.5) 12/03/22 06:40 Globulin 2.9 g/dL (2.1-4.2) 12/03/22 06:40 Albumin/Globulin Ratio 1.3 (1.0-2.2) 12/03/22 06:40 Lipase 12 U/L (11-82) 12/03/22 06:40 Urine Color YELLOW 12/03/22 06:40 Urine Clarity CLEAR (CLEAR) 12/03/22 06:40 Urine pH 7.0 PH (5.0-7.5) 12/03/22 06:40 Ur Specific [place] 1.015 (1.002-1.030) 12/03/22 06:40 Urine Protein 100 mg/dL (NEGATIVE) H 12/03/22 06:40 Urine Glucose (UA) NEGATIVE mg/dL (NEGATIVE) 12/03/22 06:40 Urine Ketones >=80 mg/dL (NEGATIVE) H 12/03/22 06:40 Urine Occult Blood SMALL (NEGATIVE) H 12/03/22 06:40 Urine Nitrite NEGATIVE (NEGATIVE) 12/03/22 06:40 Urine Bilirubin NEGATIVE (NEGATIVE) 12/03/22 06:40 Urine Urobilinogen 2 E.U./dL (NORMAL) H 12/03/22 06:40 Ur Leukocyte Esterase NEGATIVE (NEGATIVE) 12/03/22 06:40 Urine RBC 0-5 /HPF (0-5) 12/03/22 06:40 Urine WBC 6-10 /HPF (0-5) H 12/03/22 06:40 Urine WBC Clumps PRESENT 12/03/22 06:40 Ur Squamous Epith Cells MOD Squamous (<= Few) H 12/03/22 06:40 Urine Bacteria Few /HPF (None Seen) 12/03/22 06:40 Ur Microscopic Review INDICATED 12/03/22 06:40 Urine Culture Comments NOT INDICATED 12/03/22 06:40 Sepsis Event Note (H) - Evaluation Current Stage of Sepsis: Sepsis Possible source of Sepsis: positive: Genitourinary - Sepsis Criteria Sepsis Criteria: Recorded Temperature greater than 38.3C or Less than 36C, Recorded Heart Rate greater than 90 bpm, WBC count greater than 12,000 or less than 4000 ABX Reporting Has patient been on IV antibiotics over the past 48 hours?: Yes Current Medications - Current Medications Current Medications: Active Medications Acetaminophen (Acetaminophen 325 Mg Tablet) 650 mg PO Q4HR PRN PRN Reason: Pain 1 to 4, or Fever Last Admin: 12/04/22 13:30 Dose: 650 mg Hydrocodone Bitart/Acetaminophen (Hydrocod/Acetam 5/325 Mg Tablet) 1 tab PO Q6HR PRN PRN Reason: Severe Pain (Level 7-10) Last Admin: 12/03/22 22:50 Dose: 1 tab Chlorhexidine Gluconate (Chlorhexidine Gluconate 15 Ml Udc) 15 ml PO BID [facility] Last Admin: 12/04/22 15:30 Dose: 15 ml Sodium Chloride (Normal Saline 0.9%) 1,000 mls @ 100 mls/hr IV .Q10H [facility] Last Admin: 12/04/22 09:46 Dose: 100 mls/hr Ceftriaxone Sodium 2 gm/ (Sodium Chloride) 100 mls @ 200 mls/hr IV DAILY [facility] Last Infusion: 12/04/22 11:07 Dose: Infused Lactobacillus Rhamnosus (Lactobacillus Rhamnosus Gg Capsule) 1 cap PO DAILY [facility] Last Admin: 12/04/22 09:38 Dose: 1 cap Ondansetron HCl (Ondansetron 4 Mg/2 Ml Vial) 4 mg IVP Q6HR PRN PRN Reason: Nausea / Vomiting Sodium Chloride (Sodium Chloride Flush 0.9% 10 Ml Syringe) 10 ml IVP PRN PRN PRN Reason: NEEDED PER PROVIDER ORDERS Sodium Chloride (Sodium Chloride Flush 0.9% 10 Ml Syringe) 10 ml IVP 0100,0900,1700 [facility] Last Admin: 12/04/22 15:49 Dose: Not Given
[2022-12-04] MEDS ORDERED: MAGNESIUM SULFATE 1 GM in SODIUM CHLORIDE 0.9% 50 ML IV ONE (09:28)
[2022-12-04] MEDS: LACTOBACILLUS RHAMNOSUS GG CAPSULE PO SCH (09:38)
[2022-12-04] MEDS: cefTRIAXone 2 GM in SODIUM CHLORIDE 0.9% MINIBAG 100 ML IV SCH (09:38)
[2022-12-04] MEDS: SODIUM CHLORIDE FLUSH 0.9% 10 ML SYRINGE IVP SCH ×3 (09:43→15:49)
[2022-12-04] MEDS: SODIUM CHLORIDE 0.9% 1,000 ML IV SCH ×2 (09:46→20:31)
[2022-12-04] MEDS ORDERED: MAGNESIUM SULFATE 2 GRAM 2 GM/50 ML BAG IV ONE (11:00)
[2022-12-04] MEDS: CHLORHEXIDINE GLUCONATE 15 ML UDC PO SCH ×2 (15:30→20:31)
[2022-12-04] MEDS ORDERED: CHLORHEXIDINE GLUCONATE 15 ML UDC PO SCH (21:00)
[2022-12-05] MEDS: SODIUM CHLORIDE FLUSH 0.9% 10 ML SYRINGE IVP SCH ×4 (05:09→23:59)
[2022-12-05] MEDS: ACETAMINOPHEN 325 MG TABLET PO PRN ×2 (05:10→14:27)
[2022-12-05] MEDS: SODIUM CHLORIDE 0.9% 1,000 ML IV SCH ×2 (05:11→20:35)
[2022-12-05 05:35] LABS: BASOPHILS # (AUTO) 0.1 10^3/uL (0.0-0.1); BASOPHILS % (AUTO) 0.6 %; EOSINOPHILS % (AUTO) 0.1 %; HCT - HEMATOCRIT 33.3 % (37.0-47.0); HGB - HEMOGLOBIN 10.7 g/dL (12.0-16.0); LYMPHOCYTES # (AUTO) 1.6 10^3/uL (1.5-3.5); LYMPHOCYTES % (AUTO) 19.4 %; MEAN CORPUSCULAR HEMOGLOBIN 30.2 pg (27.0-31.0); MEAN CORPUSCULAR HGB CONC 32.1 g/dL (32.0-36.0); MEAN CORPUSCULAR VOLUME 94.1 fL (81.0-99.0); MEAN PLATELET VOLUME 9.7 fL (7.9-10.8); MONOCYTES # (AUTO) 1.1 10^3/uL (0.0-1.0); MONOCYTES % (AUTO) 13.6 %; NEUTROPHILS # (AUTO) 5.4 10^3/uL (1.5-6.6); NEUTROPHILS % (AUTO) 65.1 %; PLT - PLATELET COUNT 242 10^3/uL (130-450); RED BLOOD COUNT 3.54 10^6/uL (4.20-5.40); RED CELL DISTRIBUTION WIDTH 12.7 % (12.0-15.0); WHITE BLOOD COUNT 8.3 x10^3/uL (4.8-10.8)
[2022-12-05 05:49] LABS: CALCIUM 8.8 mg/dL (8.5-10.3); CREATININE 0.6 mg/dL (0.6-1.3); POTASSIUM 3.1 mmol/L (3.5-4.5)
--- NOTE | 2022-12-05 08:47 | PROVIDER PROGRESS NOTE ---
Assessment/Plan - Problem List (1) Sepsis Qualifiers: Sepsis type: Escherichia coli Severe sepsis shock status: without septic shock Assessment/Plan: Improving Low-grade fever today in the morning otherwise feeling good at Her mouth is still hurting (2) E coli bacteremia Assessment/Plan: Improving Repeat culture today Continue give IV ceftriaxone, total treatment course will be 7 days, may transition to oral antibiotics at time of discharge (3) Pyelonephritis Assessment/Plan: Improving No further back pain, - Current Meds Current Meds: Current Medications Generic Name Dose Route Start Last Admin Trade Name Freq PRN Reason Stop Dose Admin Acetaminophen 650 mg 12/03/22 12:47 12/05/22 05:10 Acetaminophen 325 Mg Tablet PO 650 mg Q4HR PRN Administration Pain 1 to 4, or Fever Hydrocodone Bitart/Acetaminophen 1 tab 12/03/22 17:29 12/03/22 22:50 Hydrocod/Acetam 5/325 Mg Tablet PO 1 tab Q6HR PRN Administration Severe Pain (Level 7-10) Chlorhexidine Gluconate 15 ml 12/04/22 14:30 12/04/22 20:31 Chlorhexidine Gluconate 15 Ml Udc PO 15 ml BID ABDOULAYE Administration Sodium Chloride 1,000 mls @ 100 mls/hr 12/03/22 13:00 12/05/22 05:11 Normal Saline 0.9% IV 100 mls/hr .Q10H ABDOULAYE Administration Ceftriaxone Sodium 2 gm/ 100 mls @ 200 mls/hr 12/04/22 09:00 12/04/22 11:07 Sodium Chloride IV Infused DAILY ABDOULAYE Infusion Lactobacillus Rhamnosus 1 cap 12/04/22 09:00 12/04/22 09:38 Lactobacillus Rhamnosus Gg Capsule PO 1 cap DAILY ABDOULAYE Administration Sodium Chloride 10 ml 12/03/22 17:00 12/05/22 05:09 Sodium Chloride Flush 0.9% 10 Ml Syringe IVP Not Given 0100,0900,1700 ABDOULAYE - Lab Result Lab results reviewed: Yes Fish Bone Diagrams: 12/05/22 05:10 12/05/22 05:10 - Additional Planning My Orders: My Active Orders 12/04/22 14:30 Chlorhexidine [Peridex] 15 ml PO BID 12/04/22 Dinner DIET [Soft Mechanical Diet] [DIET] 12/05/22 05:00 MAGNESIUM [CHEM] Routine 12/05/22 05:10 CULTURE, BLOOD #1 [RM] Routine 12/05/22 05:24 CULTURE, BLOOD #2 [RM] DAILY 12/05/22 09:00 Potassium Chloride [K-Dur] 20 meq PO BID 12/06/22 05:00 BMP - BASIC METABOLIC PANEL [CHEM] DAILYLAB 12/07/22 05:00 BMP - BASIC METABOLIC PANEL [CHEM] DAILYLAB 12/08/22 05:00 BMP - BASIC METABOLIC PANEL [CHEM] DAILYLAB 12/09/22 05:00 BMP - BASIC METABOLIC PANEL [CHEM] DAILYLAB Subjective - Subjective Patient Reports: Feeling Better (Only had mild fever in the morning otherwise feels much improved) Objective Vital Signs: Vital Signs - 24 hr 12/04/22 12/04/22 12/04/22 13:00 15:37 18:39 Temperature 39.6 C H 38.1 C H 37.7 C Heart Rate [ 108 H Apical] Heart Rate [ Brachial] Heart Rate [ 120 H Monitoring electrodes] Respiratory 18 18 Rate Blood Pressure 117/64 118/72 [Left Brachial artery] O2 Saturation 98 99 12/04/22 12/04/22 12/04/22 20:32 20:55 23:41 Temperature 37.8 C 37.6 C 37.4 C Heart Rate [ Apical] Heart Rate [ 95 95 Brachial] Heart Rate [ Monitoring electrodes] Respiratory 20 20 Rate Blood Pressure 121/72 129/71 [Left Brachial artery] O2 Saturation 99 100 12/05/22 12/05/22 12/05/22 04:56 06:00 07:35 Temperature 39.0 C H 37.7 C 37.4 C Heart Rate [ Apical] Heart Rate [ 111 H 101 H Brachial] Heart Rate [ Monitoring electrodes] Respiratory 16 16 Rate Blood Pressure 122/85 H 118/77 [Left Brachial artery] O2 Saturation 100 100 Oxygen O2 Source Room air I&O (Last 24 Hrs): Intake and Output Totals x24h 12/03/22 12/04/22 12/05/22 23:59 23:59 23:59 Intake Total 3210.000 2988.334 710 Output Total 1 Balance 3209.000 2988.334 710 General: Alert, Oriented x3 HEENT: PERRLA, EOMI Neck: Supple, No JVD Cardiovascular: Regular rate Respiratory: No respiratory distress, Breath sounds nml Extremities: No edema - Results Results: Laboratory Results WBC 8.3 x10^3/uL (4.8-10.8) 12/05/22 05:10 RBC 3.54 10^6/uL (4.20-5.40) L 12/05/22 05:10 Hgb 10.7 g/dL (12.0-16.0) L 12/05/22 05:10 Hct 33.3 % (37.0-47.0) L 12/05/22 05:10 MCV 94.1 fL (81.0-99.0) 12/05/22 05:10 MCH 30.2 pg (27.0-31.0) 12/05/22 05:10 MCHC 32.1 g/dL (32.0-36.0) 12/05/22 05:10 RDW 12.7 % (12.0-15.0) 12/05/22 05:10 Plt Count 242 10^3/uL (130-450) 12/05/22 05:10 MPV 9.7 fL (7.9-10.8) 12/05/22 05:10 Neut # (Auto) 5.4 10^3/uL (1.5-6.6) 12/05/22 05:10 Lymph # (Auto) 1.6 10^3/uL (1.5-3.5) 12/05/22 05:10 [place] # (Auto) 1.1 10^3/uL (0.0-1.0) H 12/05/22 05:10 Eos # (Auto) 0.0 10^3/uL (0.0-0.7) 12/05/22 05:10 Baso # (Auto) 0.1 10^3/uL (0.0-0.1) 12/05/22 05:10 Absolute Nucleated RBC 0.00 x10^3/uL 12/05/22 05:10 Nucleated RBC % 0.0 /100WBC 12/05/22 05:10 Manual Slide Review Indicated 12/03/22 06:40 RBC Morph Micro Appear 1+ ANISOCYTOSIS (NORMAL) 12/03/22 06:40 PT 14.9 secs (9.9-12.6) H 12/04/22 05:34 INR 1.4 (0.8-1.2) H 12/04/22 05:34 Sodium 138 mmol/L (135-145) 12/05/22 05:10 Potassium 3.1 mmol/L (3.5-4.5) L 12/05/22 05:10 Chloride 108 mmol/L (101-111) 12/05/22 05:10 Carbon Dioxide 22 mmol/L (21-32) 12/05/22 05:10 Anion Gap 8.0 (6-13) 12/05/22 05:10 BUN 8 mg/dL (6-20) 12/05/22 05:10 Creatinine 0.6 mg/dL (0.6-1.3) 12/05/22 05:10 Estimated GFR (MDRD) 122 (>89) 12/05/22 05:10 Glucose 109 mg/dL (74-104) H 12/05/22 05:10 Lactic Acid 1.2 mmol/L (0.5-2.2) 12/03/22 06:30 Calcium 8.8 mg/dL (8.5-10.3) 12/05/22 05:10 Magnesium 1.6 mg/dL (1.7-2.3) L 12/04/22 05:34 Total Bilirubin 0.9 mg/dL (0.2-1.0) 12/03/22 06:40 AST 15 IU/L (10-42) 12/03/22 06:40 ALT 12 IU/L (10-60) 12/03/22 06:40 Alkaline Phosphatase 62 IU/L (42-121) 12/03/22 06:40 Total Protein 6.8 g/dL (6.4-8.9) 12/03/22 06:40 Albumin 3.9 g/dL (3.2-5.5) 12/03/22 06:40 Globulin 2.9 g/dL (2.1-4.2) 12/03/22 06:40 Albumin/Globulin Ratio 1.3 (1.0-2.2) 12/03/22 06:40 Lipase 12 U/L (11-82) 12/03/22 06:40 Urine Color YELLOW 12/03/22 06:40 Urine Clarity CLEAR (CLEAR) 12/03/22 06:40 Urine pH 7.0 PH (5.0-7.5) 12/03/22 06:40 Ur Specific [place] 1.015 (1.002-1.030) 12/03/22 06:40 Urine Protein 100 mg/dL (NEGATIVE) H 12/03/22 06:40 Urine Glucose (UA) NEGATIVE mg/dL (NEGATIVE) 12/03/22 06:40 Urine Ketones >=80 mg/dL (NEGATIVE) H 12/03/22 06:40 Urine Occult Blood SMALL (NEGATIVE) H 12/03/22 06:40 Urine Nitrite NEGATIVE (NEGATIVE) 12/03/22 06:40 Urine Bilirubin NEGATIVE (NEGATIVE) 12/03/22 06:40 Urine Urobilinogen 2 E.U./dL (NORMAL) H 12/03/22 06:40 Ur Leukocyte Esterase NEGATIVE (NEGATIVE) 12/03/22 06:40 Urine RBC 0-5 /HPF (0-5) 12/03/22 06:40 Urine WBC 6-10 /HPF (0-5) H 12/03/22 06:40 Urine WBC Clumps PRESENT 12/03/22 06:40 Ur Squamous Epith Cells MOD Squamous (<= Few) H 12/03/22 06:40 Urine Bacteria Few /HPF (None Seen) 12/03/22 06:40 Ur Microscopic Review INDICATED 12/03/22 06:40 Urine Culture Comments NOT INDICATED 12/03/22 06:40 Sepsis Event Note (H) - Evaluation Current Stage of Sepsis: Sepsis Possible source of Sepsis: positive: Genitourinary - Sepsis Criteria Sepsis Criteria: Recorded Temperature greater than 38.3C or Less than 36C, Recorded Heart Rate greater than 90 bpm, WBC count greater than 12,000 or less than 4000 ABX Reporting Has patient been on IV antibiotics over the past 48 hours?: Yes Current Medications - Current Medications Current Medications: Active Medications Acetaminophen (Acetaminophen 325 Mg Tablet) 650 mg PO Q4HR PRN PRN Reason: Pain 1 to 4, or Fever Last Admin: 12/05/22 14:27 Dose: 650 mg Hydrocodone Bitart/Acetaminophen (Hydrocod/Acetam 5/325 Mg Tablet) 1 tab PO Q6HR PRN PRN Reason: Severe Pain (Level 7-10) Last Admin: 12/03/22 22:50 Dose: 1 tab Chlorhexidine Gluconate (Chlorhexidine Gluconate 15 Ml Udc) 15 ml PO BID [facility]BD[facility]E Last Admin: 12/05/22 09:30 Dose: 15 ml Sodium Chloride (Normal Saline 0.9%) 1,000 mls @ 100 mls/hr IV .Q10H [facility] Last Admin: 12/05/22 05:11 Dose: 100 mls/hr Ceftriaxone Sodium 2 gm/ (Sodium Chloride) 100 mls @ 200 mls/hr IV DAILY [facility] Last Infusion: 12/05/22 11:15 Dose: Infused Lactobacillus Rhamnosus (Lactobacillus Rhamnosus Gg Capsule) 1 cap PO DAILY [facility] Last Admin: 12/05/22 09:30 Dose: 1 cap Ondansetron HCl (Ondansetron 4 Mg/2 Ml Vial) 4 mg IVP Q6HR PRN PRN Reason: Nausea / Vomiting Potassium Chloride (Potassium Chloride 20 Meq Tablet) 20 meq PO BID [facility] Stop: 12/07/22 08:59 Last Admin: 12/05/22 09:30 Dose: 20 meq Sodium Chloride (Sodium Chloride Flush 0.9% 10 Ml Syringe) 10 ml IVP PRN PRN PRN Reason: NEEDED PER PROVIDER ORDERS Sodium Chloride (Sodium Chloride Flush 0.9% 10 Ml Syringe) 10 ml IVP 0100,0900,1700 [facility] Last Admin: 12/05/22 09:31 Dose: 10 ml
[2022-12-05] MEDS: LACTOBACILLUS RHAMNOSUS GG CAPSULE PO SCH (09:30)
[2022-12-05] MEDS: CHLORHEXIDINE GLUCONATE 15 ML UDC PO SCH ×2 (09:30→21:24)
[2022-12-05] MEDS: POTASSIUM CHLORIDE 20 MEQ TABLET PO SCH ×2 (09:30→21:24)
[2022-12-05] MEDS: cefTRIAXone 2 GM in SODIUM CHLORIDE 0.9% MINIBAG 100 ML IV SCH (09:30)
[2022-12-06] MEDS: ACETAMINOPHEN 325 MG TABLET PO PRN (00:10)
[2022-12-06 05:12] LABS: BASOPHILS % (AUTO) 0.4 %; EOSINOPHILS % (AUTO) 0.4 %; HCT - HEMATOCRIT 33.2 % (37.0-47.0); HGB - HEMOGLOBIN 10.9 g/dL (12.0-16.0); LYMPHOCYTES # (AUTO) 2.9 10^3/uL (1.5-3.5); LYMPHOCYTES % (AUTO) 29.1 %; MEAN CORPUSCULAR HEMOGLOBIN 30.9 pg (27.0-31.0); MEAN CORPUSCULAR HGB CONC 32.8 g/dL (32.0-36.0); MEAN CORPUSCULAR VOLUME 94.1 fL (81.0-99.0); MEAN PLATELET VOLUME 9.5 fL (7.9-10.8); MONOCYTES # (AUTO) 1.4 10^3/uL (0.0-1.0); MONOCYTES % (AUTO) 13.8 %; NEUTROPHILS # (AUTO) 5.4 10^3/uL (1.5-6.6); NEUTROPHILS % (AUTO) 55.6 %; PLT - PLATELET COUNT 248 10^3/uL (130-450); RED BLOOD COUNT 3.53 10^6/uL (4.20-5.40); RED CELL DISTRIBUTION WIDTH 12.7 % (12.0-15.0); WHITE BLOOD COUNT 9.8 x10^3/uL (4.8-10.8)
[2022-12-06 05:28] LABS: CALCIUM 8.9 mg/dL (8.5-10.3); CREATININE 0.5 mg/dL (0.6-1.3); POTASSIUM 3.6 mmol/L (3.5-4.5)
[2022-12-06] MEDS: SODIUM CHLORIDE 0.9% 1,000 ML IV SCH ×2 (06:18→16:14)
[2022-12-06] MEDS: CHLORHEXIDINE GLUCONATE 15 ML UDC PO SCH ×2 (09:27→21:32)
[2022-12-06] MEDS: cefTRIAXone 2 GM in SODIUM CHLORIDE 0.9% MINIBAG 100 ML IV SCH (09:27)
[2022-12-06] MEDS: SODIUM CHLORIDE FLUSH 0.9% 10 ML SYRINGE IVP SCH ×2 (09:27→16:15)
[2022-12-06] MEDS: POTASSIUM CHLORIDE 20 MEQ TABLET PO SCH ×2 (09:27→21:32)
[2022-12-06] MEDS: LACTOBACILLUS RHAMNOSUS GG CAPSULE PO SCH (09:27)
--- NOTE | 2022-12-06 12:03 | PROVIDER PROGRESS NOTE ---
Assessment/Plan - Problem List (1) Sepsis Qualifiers: Sepsis type: Escherichia coli Severe sepsis shock status: without septic shock Assessment/Plan: Improving, however had low-grade fever last night, Continue with IV ceftriaxone Encourage oral intake (2) E coli bacteremia Assessment/Plan: Repeat culture on 12/05/2022 no growth to date Continue IV antibiotics with 5 to 7 days treatment course (3) Pyelonephritis Assessment/Plan: Improving, continue IV antibiotics - Current Meds Current Meds: Current Medications Generic Name Dose Route Start Last Admin Trade Name Freq PRN Reason Stop Dose Admin Acetaminophen 650 mg 12/03/22 12:47 12/06/22 00:10 Acetaminophen 325 Mg Tablet PO 650 mg Q4HR PRN Administration Pain 1 to 4, or Fever Hydrocodone Bitart/Acetaminophen 1 tab 12/03/22 17:29 12/03/22 22:50 Hydrocod/Acetam 5/325 Mg Tablet PO 1 tab Q6HR PRN Administration Severe Pain (Level 7-10) Chlorhexidine Gluconate 15 ml 12/04/22 14:30 12/06/22 09:27 Chlorhexidine Gluconate 15 Ml Udc PO 15 ml BID ABDOULAYE Administration Sodium Chloride 1,000 mls @ 100 mls/hr 12/03/22 13:00 12/06/22 06:18 Normal Saline 0.9% IV 100 mls/hr .Q10H ABDOULAYE Administration Ceftriaxone Sodium 2 gm/ 100 mls @ 200 mls/hr 12/04/22 09:00 12/06/22 09:27 Sodium Chloride IV 200 mls/hr DAILY ABDOULAYE Administration Lactobacillus Rhamnosus 1 cap 12/04/22 09:00 12/06/22 09:27 Lactobacillus Rhamnosus Gg Capsule PO 1 cap DAILY ABDOULAYE Administration Potassium Chloride 20 meq 12/05/22 09:00 12/06/22 09:27 Potassium Chloride 20 Meq Tablet PO 12/07/22 08:59 20 meq BID ABDOULAYE Administration Sodium Chloride 10 ml 12/03/22 17:00 12/06/22 09:27 Sodium Chloride Flush 0.9% 10 Ml Syringe IVP 10 ml 0100,0900,1700 ABDOULAYE Administration - Lab Result Lab results reviewed: Yes Fish Bone Diagrams: 12/06/22 05:00 12/06/22 05:00 - Diagnostic Imaging Results Diagnostic Imaging Results: Final report reviewed - Additional Planning My Orders: My Active Orders 12/06/22 12:00 Multivitamin W/Minerals [Theragran M] 1 tab PO DAILYWM 12/07/22 05:00 BMP - BASIC METABOLIC PANEL [CHEM] DAILYLAB 12/08/22 05:00 BMP - BASIC METABOLIC PANEL [CHEM] DAILYLAB 12/09/22 05:00 BMP - BASIC METABOLIC PANEL [CHEM] DAILYLAB Subjective - Subjective Patient Reports: Feeling Better Nursing Reports: No Complaints Objective Vital Signs: Vital Signs - 24 hr 12/05/22 12/05/22 12/05/22 13:06 14:27 14:58 Temperature 37.7 C 38.9 C H 38.1 C H Heart Rate [ 95 Brachial] Respiratory 16 Rate Blood Pressure 127/81 H [Left Brachial artery] Blood Pressure [Right Brachial artery] O2 Saturation 100 12/05/22 12/05/22 12/06/22 15:36 20:16 00:08 Temperature 37.5 C 37.8 C 38.2 C H Heart Rate [ 94 96 97 Brachial] Respiratory 16 16 16 Rate Blood Pressure [Left Brachial artery] Blood Pressure 128/72 134/78 H 133/85 H [Right Brachial artery] O2 Saturation 99 100 100 12/06/22 12/06/22 12/06/22 01:10 04:59 07:28 Temperature 37.6 C 36.8 C 37.4 C Heart Rate [ 76 73 Brachial] Respiratory 16 16 Rate Blood Pressure [Left Brachial artery] Blood Pressure 121/73 126/73 [Right Brachial artery] O2 Saturation 100 100 Oxygen O2 Source Room air I&O (Last 24 Hrs): Intake and Output Totals x24h 12/04/22 12/05/22 12/06/22 23:59 23:59 23:59 Intake Total 2988.334 3375 1026.667 Balance 2988.334 3375 1026.667 General: Oriented x3 HEENT: PERRLA Neck: No JVD Neuro: Alert, CN 2-12 Grossly Intact Cardiovascular: Regular rate Respiratory: No respiratory distress Extremities: No clubbing Skin: No rashes - Results Results: Laboratory Results WBC 9.8 x10^3/uL (4.8-10.8) 12/06/22 05:00 RBC 3.53 10^6/uL (4.20-5.40) L 12/06/22 05:00 Hgb 10.9 g/dL (12.0-16.0) L 12/06/22 05:00 Hct 33.2 % (37.0-47.0) L 12/06/22 05:00 MCV 94.1 fL (81.0-99.0) 12/06/22 05:00 MCH 30.9 pg (27.0-31.0) 12/06/22 05:00 MCHC 32.8 g/dL (32.0-36.0) 12/06/22 05:00 RDW 12.7 % (12.0-15.0) 12/06/22 05:00 Plt Count 248 10^3/uL (130-450) 12/06/22 05:00 MPV 9.5 fL (7.9-10.8) 12/06/22 05:00 Neut # (Auto) 5.4 10^3/uL (1.5-6.6) 12/06/22 05:00 Lymph # (Auto) 2.9 10^3/uL (1.5-3.5) 12/06/22 05:00 [place] # (Auto) 1.4 10^3/uL (0.0-1.0) H 12/06/22 05:00 Eos # (Auto) 0.0 10^3/uL (0.0-0.7) 12/06/22 05:00 Baso # (Auto) 0.0 10^3/uL (0.0-0.1) 12/06/22 05:00 Absolute Nucleated RBC 0.00 x10^3/uL 12/06/22 05:00 Nucleated RBC % 0.0 /100WBC 12/06/22 05:00 Manual Slide Review Indicated 12/03/22 06:40 RBC Morph Micro Appear 1+ ANISOCYTOSIS (NORMAL) 12/03/22 06:40 PT 14.9 secs (9.9-12.6) H 12/04/22 05:34 INR 1.4 (0.8-1.2) H 12/04/22 05:34 Sodium 140 mmol/L (135-145) 12/06/22 05:00 Potassium 3.6 mmol/L (3.5-4.5) 12/06/22 05:00 Chloride 113 mmol/L (101-111) H 12/06/22 05:00 Carbon Dioxide 21 mmol/L (21-32) 12/06/22 05:00 Anion Gap 6.0 (6-13) 12/06/22 05:00 BUN 8 mg/dL (6-20) 12/06/22 05:00 Creatinine 0.5 mg/dL (0.6-1.3) L 12/06/22 05:00 Estimated GFR (MDRD) 150 (>89) 12/06/22 05:00 Glucose 105 mg/dL (74-104) H 12/06/22 05:00 Lactic Acid 1.2 mmol/L (0.5-2.2) 12/03/22 06:30 Calcium 8.9 mg/dL (8.5-10.3) 12/06/22 05:00 Magnesium 1.9 mg/dL (1.7-2.3) 12/05/22 05:10 Total Bilirubin 0.9 mg/dL (0.2-1.0) 12/03/22 06:40 AST 15 IU/L (10-42) 12/03/22 06:40 ALT 12 IU/L (10-60) 12/03/22 06:40 Alkaline Phosphatase 62 IU/L (42-121) 12/03/22 06:40 Total Protein 6.8 g/dL (6.4-8.9) 12/03/22 06:40 Albumin 3.9 g/dL (3.2-5.5) 12/03/22 06:40 Globulin 2.9 g/dL (2.1-4.2) 12/03/22 06:40 Albumin/Globulin Ratio 1.3 (1.0-2.2) 12/03/22 06:40 Lipase 12 U/L (11-82) 12/03/22 06:40 Urine Color YELLOW 12/03/22 06:40 Urine Clarity CLEAR (CLEAR) 12/03/22 06:40 Urine pH 7.0 PH (5.0-7.5) 12/03/22 06:40 Ur Specific [place] 1.015 (1.002-1.030) 12/03/22 06:40 Urine Protein 100 mg/dL (NEGATIVE) H 12/03/22 06:40 Urine Glucose (UA) NEGATIVE mg/dL (NEGATIVE) 12/03/22 06:40 Urine Ketones >=80 mg/dL (NEGATIVE) H 12/03/22 06:40 Urine Occult Blood SMALL (NEGATIVE) H 12/03/22 06:40 Urine Nitrite NEGATIVE (NEGATIVE) 12/03/22 06:40 Urine Bilirubin NEGATIVE (NEGATIVE) 12/03/22 06:40 Urine Urobilinogen 2 E.U./dL (NORMAL) H 12/03/22 06:40 Ur Leukocyte Esterase NEGATIVE (NEGATIVE) 12/03/22 06:40 Urine RBC 0-5 /HPF (0-5) 12/03/22 06:40 Urine WBC 6-10 /HPF (0-5) H 12/03/22 06:40 Urine WBC Clumps PRESENT 12/03/22 06:40 Ur Squamous Epith Cells MOD Squamous (<= Few) H 12/03/22 06:40 Urine Bacteria Few /HPF (None Seen) 12/03/22 06:40 Ur Microscopic Review INDICATED 12/03/22 06:40 Urine Culture Comments NOT INDICATED 12/03/22 06:40 Sepsis Event Note (H) - Evaluation Current Stage of Sepsis: Sepsis Possible source of Sepsis: positive: Genitourinary - Sepsis Criteria Sepsis Criteria: Recorded Temperature greater than 38.3C or Less than 36C, Recorded Heart Rate greater than 90 bpm, WBC count greater than 12,000 or less than 4000 ABX Reporting Has patient been on IV antibiotics over the past 48 hours?: Yes Current Medications - Current Medications Current Medications: Active Medications Acetaminophen (Acetaminophen 325 Mg Tablet) 650 mg PO Q4HR PRN PRN Reason: Pain 1 to 4, or Fever Last Admin: 12/06/22 00:10 Dose: 650 mg Hydrocodone Bitart/Acetaminophen (Hydrocod/Acetam 5/325 Mg Tablet) 1 tab PO Q6HR PRN PRN Reason: Severe Pain (Level 7-10) Last Admin: 12/03/22 22:50 Dose: 1 tab Chlorhexidine Gluconate (Chlorhexidine Gluconate 15 Ml Udc) 15 ml PO BID ABDOULAYE Last Admin: 12/06/22 21:32 Dose: 15 ml Sodium Chloride (Normal Saline 0.9%) 1,000 mls @ 100 mls/hr IV .Q10H ABDOULAYE Last Infusion: 12/06/22 21:33 Dose: 100 mls/hr Ceftriaxone Sodium 2 gm/ (Sodium Chloride) 100 mls @ 200 mls/hr IV DAILY [facility] Last Infusion: 12/06/22 12:21 Dose: Infused Lactobacillus Rhamnosus (Lactobacillus Rhamnosus Gg Capsule) 1 cap PO DAILY [facility] Last Admin: 12/06/22 09:27 Dose: 1 cap Multivitamins/Minerals (Multivitamin W/Minerals Tablet) 1 tab PO DAILYWM [facility] Last Admin: 12/06/22 12:22 Dose: 1 tab Ondansetron HCl (Ondansetron 4 Mg/2 Ml Vial) 4 mg IVP Q6HR PRN PRN Reason: Nausea / Vomiting Potassium Chloride (Potassium Chloride 20 Meq Tablet) 20 meq PO BID [facility] Stop: 12/07/22 08:59 Last Admin: 12/06/22 21:32 Dose: 20 meq Sodium Chloride (Sodium Chloride Flush 0.9% 10 Ml Syringe) 10 ml IVP PRN PRN PRN Reason: NEEDED PER PROVIDER ORDERS Sodium Chloride (Sodium Chloride Flush 0.9% 10 Ml Syringe) 10 ml IVP 0100 ,0900,1700 [facility] Last Admin: 12/06/22 16:15 Dose: Not Given
[2022-12-06] MEDS: MULTIVITAMIN W/MINERALS TABLET PO SCH (12:22)
[2022-12-07] MEDS: SODIUM CHLORIDE FLUSH 0.9% 10 ML SYRINGE IVP SCH ×3 (00:17→20:49)
[2022-12-07] MEDS: SODIUM CHLORIDE 0.9% 1,000 ML IV SCH ×2 (02:24→14:33)
[2022-12-07 05:52] LABS: BASOPHILS % (AUTO) 0.4 %; EOSINOPHILS # (AUTO) 0.1 10^3/uL (0.0-0.7); EOSINOPHILS % (AUTO) 0.9 %; HCT - HEMATOCRIT 30.4 % (37.0-47.0); HGB - HEMOGLOBIN 10.3 g/dL (12.0-16.0); LYMPHOCYTES # (AUTO) 3.2 10^3/uL (1.5-3.5); LYMPHOCYTES % (AUTO) 30.7 %; MEAN CORPUSCULAR HEMOGLOBIN 31.1 pg (27.0-31.0); MEAN CORPUSCULAR HGB CONC 33.9 g/dL (32.0-36.0); MEAN CORPUSCULAR VOLUME 91.8 fL (81.0-99.0); MEAN PLATELET VOLUME 9.3 fL (7.9-10.8); MONOCYTES % (AUTO) 9.8 %; NEUTROPHILS # (AUTO) 5.9 10^3/uL (1.5-6.6); NEUTROPHILS % (AUTO) 57.3 %; PLT - PLATELET COUNT 270 10^3/uL (130-450); RED BLOOD COUNT 3.31 10^6/uL (4.20-5.40); RED CELL DISTRIBUTION WIDTH 12.8 % (12.0-15.0); WHITE BLOOD COUNT 10.4 x10^3/uL (4.8-10.8)
[2022-12-07 06:11] LABS: CALCIUM 9.2 mg/dL (8.5-10.3); CREATININE 0.5 mg/dL (0.6-1.3); POTASSIUM 3.9 mmol/L (3.5-4.5)
--- NOTE | 2022-12-07 08:04 | PROVIDER PROGRESS NOTE ---
Assessment/Plan - Problem List (1) Sepsis Qualifiers: Sepsis type: Escherichia coli Severe sepsis shock status: without septic shock Assessment/Plan: Sepsis has resolved, stable on IV antibiotics afebrile Plan for discharge tomorrow, 48 hours after being afebrile (2) E coli bacteremia Assessment/Plan: Repeat culture 12/05/2022 has no growth to date (3) Pyelonephritis Assessment/Plan: Resolving On IV ceftriaxone 2 g daily - Current Meds Current Meds: Current Medications Generic Name Dose Route Start Last Admin Trade Name Freq PRN Reason Stop Dose Admin Acetaminophen 650 mg 12/03/22 12:47 12/06/22 00:10 Acetaminophen 325 Mg Tablet PO 650 mg Q4HR PRN Administration Pain 1 to 4, or Fever Hydrocodone Bitart/Acetaminophen 1 tab 12/03/22 17:29 12/03/22 22:50 Hydrocod/Acetam 5/325 Mg Tablet PO 1 tab Q6HR PRN Administration Severe Pain (Level 7-10) Chlorhexidine Gluconate 15 ml 12/04/22 14:30 12/06/22 21:32 Chlorhexidine Gluconate 15 Ml Udc PO 15 ml BID ABDOULAYE Administration Sodium Chloride 1,000 mls @ 100 mls/hr 12/03/22 13:00 12/07/22 02:24 Normal Saline 0.9% IV 100 mls/hr .Q10H ABDOULAYE Administration Ceftriaxone Sodium 2 gm/ 100 mls @ 200 mls/hr 12/04/22 09:00 12/06/22 12:21 Sodium Chloride IV Infused DAILY ABDOULAYE Infusion Lactobacillus Rhamnosus 1 cap 12/04/22 09:00 12/06/22 09:27 Lactobacillus Rhamnosus Gg Capsule PO 1 cap DAILY ABDOULAYE Administration Multivitamins/Minerals 1 tab 12/06/22 12:00 12/06/22 12:22 Multivitamin W/Minerals Tablet PO 1 tab DAILYWM ABDOULAYE Administration Potassium Chloride 20 meq 12/05/22 09:00 12/06/22 21:32 Potassium Chloride 20 Meq Tablet PO 12/07/22 08:59 20 meq BID ABDOULAYE Administration Sodium Chloride 10 ml 12/03/22 17:00 12/07/22 00:17 Sodium Chloride Flush 0.9% 10 Ml Syringe IVP Not Given 0100,0900,1700 ABDOULAYE - Lab Result Fish Bone Diagrams: 12/07/22 05:29 12/07/22 05:29 - Additional Planning My Orders: My Active Orders 12/06/22 12:00 Multivitamin W/Minerals [Theragran M] 1 tab PO DAILYWM 12/06/22 Dinner DIET [Regular Diet] [DIET] 12/08/22 05:00 BMP - BASIC METABOLIC PANEL [CHEM] DAILYLAB CBC [CBC - COMP BLD CT W/AUTO DIFF] [HEME] DAILYLAB 12/09/22 05:00 BMP - BASIC METABOLIC PANEL [CHEM] DAILYLAB CBC [CBC - COMP BLD CT W/AUTO DIFF] [HEME] DAILYLAB 12/10/22 05:00 CBC [CBC - COMP BLD CT W/AUTO DIFF] [HEME] DAILYLAB 12/11/22 05:00 CBC [CBC - COMP BLD CT W/AUTO DIFF] [HEME] DAILYLAB 12/12/22 05:00 CBC [CBC - COMP BLD CT W/AUTO DIFF] [HEME] DAILYLAB Subjective - Subjective Patient Reports: Feeling Better (No discomfort reported, her tooth ache has resolved as well) Objective Vital Signs: Vital Signs - 24 hr 12/06/22 12/06/22 12/06/22 13:34 15:44 20:00 Temperature 37.8 C 37.4 C 37.2 C Heart Rate [ 99 82 86 Brachial] Respiratory 16 24 20 Rate Blood Pressure 125/81 H 131/82 H 133/79 H [Right Brachial artery] O2 Saturation 100 100 100 12/07/22 12/07/22 00:12 05:44 Temperature 37.6 C 36.9 C Heart Rate [ 104 H 83 Brachial] Respiratory 16 18 Rate Blood Pressure 136/72 H 118/78 [Right Brachial artery] O2 Saturation 100 100 Oxygen O2 Source Room air I&O (Last 24 Hrs): Intake and Output Totals x24h 12/05/22 12/06/22 12/07/22 23:59 23:59 23:59 Intake Total 3375 4150.004 468.333 Balance 3375 4150.004 468.333 General: Alert, Oriented x3 HEENT: PERRLA, EOMI Neck: Supple, No JVD Neuro: Alert Cardiovascular: Regular rate Respiratory: Chest non-tender Abdomen: Normal bowel sounds, Soft Extremities: No clubbing, No edema - Results Results: Laboratory Results WBC 10.4 x10^3/uL (4.8-10.8) 12/07/22 05:29 RBC 3.31 10^6/uL (4.20-5.40) L 12/07/22 05:29 Hgb 10.3 g/dL (12.0-16.0) L 12/07/22 05:29 Hct 30.4 % (37.0-47.0) L 12/07/22 05:29 MCV 91.8 fL (81.0-99.0) 12/07/22 05:29 MCH 31.1 pg (27.0-31.0) H 12/07/22 05:29 MCHC 33.9 g/dL (32.0-36.0) 12/07/22 05:29 RDW 12.8 % (12.0-15.0) 12/07/22 05:29 Plt Count 270 10^3/uL (130-450) 12/07/22 05:29 MPV 9.3 fL (7.9-10.8) 12/07/22 05:29 Neut # (Auto) 5.9 10^3/uL (1.5-6.6) 12/07/22 05:29 Lymph # (Auto) 3.2 10^3/uL (1.5-3.5) 12/07/22 05:29 [place] # (Auto) 1.0 10^3/uL (0.0-1.0) 12/07/22 05:29 Eos # (Auto) 0.1 10^3/uL (0.0-0.7) 12/07/22 05:29 Baso # (Auto) 0.0 10^3/uL (0.0-0.1) 12/07/22 05:29 Absolute Nucleated RBC 0.00 x10^3/uL 12/07/22 05:29 Nucleated RBC % 0.0 /100WBC 12/07/22 05:29 Manual Slide Review Indicated 12/03/22 06:40 RBC Morph Micro Appear 1+ ANISOCYTOSIS (NORMAL) 12/03/22 06:40 PT 14.9 secs (9.9-12.6) H 12/04/22 05:34 INR 1.4 (0.8-1.2) H 12/04/22 05:34 Sodium 141 mmol/L (135-145) 12/07/22 05:29 Potassium 3.9 mmol/L (3.5-4.5) 12/07/22 05:29 Chloride 110 mmol/L (101-111) 12/07/22 05:29 Carbon Dioxide 25 mmol/L (21-32) 12/07/22 05:29 Anion Gap 6.0 (6-13) 12/07/22 05:29 BUN 9 mg/dL (6-20) 12/07/22 05:29 Creatinine 0.5 mg/dL (0.6-1.3) L 12/07/22 05:29 Estimated GFR (MDRD) 150 (>89) 12/07/22 05:29 Glucose 97 mg/dL (74-104) 12/07/22 05:29 Lactic Acid 1.2 mmol/L (0.5-2.2) 12/03/22 06:30 Calcium 9.2 mg/dL (8.5-10.3) 12/07/22 05:29 Magnesium 1.9 mg/dL (1.7-2.3) 12/05/22 05:10 Total Bilirubin 0.9 mg/dL (0.2-1.0) 12/03/22 06:40 AST 15 IU/L (10-42) 12/03/22 06:40 ALT 12 IU/L (10-60) 12/03/22 06:40 Alkaline Phosphatase 62 IU/L (42-121) 12/03/22 06:40 Total Protein 6.8 g/dL (6.4-8.9) 12/03/22 06:40 Albumin 3.9 g/dL (3.2-5.5) 12/03/22 06:40 Globulin 2.9 g/dL (2.1-4.2) 12/03/22 06:40 Albumin/Globulin Ratio 1.3 (1.0-2.2) 12/03/22 06:40 Lipase 12 U/L (11-82) 12/03/22 06:40 Urine Color YELLOW 12/03/22 06:40 Urine Clarity CLEAR (CLEAR) 12/03/22 06:40 Urine pH 7.0 PH (5.0-7.5) 12/03/22 06:40 Ur Specific [place] 1.015 (1.002-1.030) 12/03/22 06:40 Urine Protein 100 mg/dL (NEGATIVE) H 12/03/22 06:40 Urine Glucose (UA) NEGATIVE mg/dL (NEGATIVE) 12/03/22 06:40 Urine Ketones >=80 mg/dL (NEGATIVE) H 12/03/22 06:40 Urine Occult Blood SMALL (NEGATIVE) H 12/03/22 06:40 Urine Nitrite NEGATIVE (NEGATIVE) 12/03/22 06:40 Urine Bilirubin NEGATIVE (NEGATIVE) 12/03/22 06:40 Urine Urobilinogen 2 E.U./dL (NORMAL) H 12/03/22 06:40 Ur Leukocyte Esterase NEGATIVE (NEGATIVE) 12/03/22 06:40 Urine RBC 0-5 /HPF (0-5) 12/03/22 06:40 Urine WBC 6-10 /HPF (0-5) H 12/03/22 06:40 Urine WBC Clumps PRESENT 12/03/22 06:40 Ur Squamous Epith Cells MOD Squamous (<= Few) H 12/03/22 06:40 Urine Bacteria Few /HPF (None Seen) 12/03/22 06:40 Ur Microscopic Review INDICATED 12/03/22 06:40 Urine Culture Comments NOT INDICATED 12/03/22 06:40 Sepsis Event Note (H) - Evaluation Current Stage of Sepsis: Sepsis Possible source of Sepsis: positive: Genitourinary - Sepsis Criteria Sepsis Criteria: Recorded Temperature greater than 38.3C or Less than 36C, Recorded Heart Rate greater than 90 bpm, WBC count greater than 12,000 or less than 4000 ABX Reporting Has patient been on IV antibiotics over the past 48 hours?: Yes Current Medications - Current Medications Current Medications: Active Medications Acetaminophen (Acetaminophen 325 Mg Tablet) 650 mg PO Q4HR PRN PRN Reason: Pain 1 to 4, or Fever Last Admin: 12/06/22 00:10 Dose: 650 mg Hydrocodone Bitart/Acetaminophen (Hydrocod/Acetam 5/325 Mg Tablet) 1 tab PO Q6HR PRN PRN Reason: Severe Pain (Level 7-10) Last Admin: 12/03/22 22:50 Dose: 1 tab Chlorhexidine Gluconate (Chlorhexidine Gluconate 15 Ml Udc) 15 ml PO BID ABDOULAYE Last Admin: 12/07/22 09:22 Dose: 15 ml Sodium Chloride (Normal Saline 0.9%) 1,000 mls @ 100 mls/hr IV .Q10H [facility] Last Admin: 12/07/22 14:33 Dose: 100 mls/hr Ceftriaxone Sodium 2 gm/ (Sodium Chloride) 100 mls @ 200 mls/hr IV DAILY [facility] Last Infusion: 12/07/22 09:30 Dose: Infused Lactobacillus Rhamnosus (Lactobacillus Rhamnosus Gg Capsule) 1 cap PO DAILY [facility] Last Admin: 12/07/22 08:58 Dose: 1 cap Multivitamins/Minerals (Multivitamin W/Minerals Tablet) 1 tab PO DAILYWM [facility] Last Admin: 12/07/22 08:58 Dose: 1 tab Ondansetron HCl (Ondansetron 4 Mg/2 Ml Vial) 4 mg IVP Q6HR PRN PRN Reason: Nausea / Vomiting Sodium Chloride (Sodium Chloride Flush 0.9% 10 Ml Syringe) 10 ml IVP PRN PRN PRN Reason: NEEDED PER PROVIDER ORDERS Sodium Chloride (Sodium Chloride Flush 0.9% 10 Ml Syringe) 10 ml IVP 0100,0900,1700 [facility] Last Admin: 12/07/22 09:22 Dose: 10 ml
[2022-12-07] MEDS: LACTOBACILLUS RHAMNOSUS GG CAPSULE PO SCH (08:58)
[2022-12-07] MEDS: cefTRIAXone 2 GM in SODIUM CHLORIDE 0.9% MINIBAG 100 ML IV SCH (08:58)
[2022-12-07] MEDS: MULTIVITAMIN W/MINERALS TABLET PO SCH (08:58)
[2022-12-07] MEDS: CHLORHEXIDINE GLUCONATE 15 ML UDC PO SCH ×2 (09:22→20:48)
[2022-12-08] MEDS: SODIUM CHLORIDE FLUSH 0.9% 10 ML SYRINGE IVP SCH ×2 (00:19→08:45)
[2022-12-08] MEDS: SODIUM CHLORIDE 0.9% 1,000 ML IV SCH ×2 (00:19→10:28)
[2022-12-08 05:40] LABS: BASOPHILS % (AUTO) 0.3 %; EOSINOPHILS # (AUTO) 0.1 10^3/uL (0.0-0.7); EOSINOPHILS % (AUTO) 1.4 %; HCT - HEMATOCRIT 32.3 % (37.0-47.0); HGB - HEMOGLOBIN 10.8 g/dL (12.0-16.0); LYMPHOCYTES # (AUTO) 3.7 10^3/uL (1.5-3.5); LYMPHOCYTES % (AUTO) 37.2 %; MEAN CORPUSCULAR HEMOGLOBIN 30.9 pg (27.0-31.0); MEAN CORPUSCULAR HGB CONC 33.4 g/dL (32.0-36.0); MEAN CORPUSCULAR VOLUME 92.3 fL (81.0-99.0); MEAN PLATELET VOLUME 9.1 fL (7.9-10.8); MONOCYTES # (AUTO) 0.8 10^3/uL (0.0-1.0); MONOCYTES % (AUTO) 7.8 %; NEUTROPHILS # (AUTO) 5.2 10^3/uL (1.5-6.6); NEUTROPHILS % (AUTO) 52.3 %; PLT - PLATELET COUNT 341 10^3/uL (130-450); RED CELL DISTRIBUTION WIDTH 12.3 % (12.0-15.0)
[2022-12-08 06:00] LABS: CALCIUM 9.2 mg/dL (8.5-10.3); CREATININE 0.5 mg/dL (0.6-1.3)
[2022-12-08] MEDS: MULTIVITAMIN W/MINERALS TABLET PO SCH (08:43)
[2022-12-08] MEDS: CHLORHEXIDINE GLUCONATE 15 ML UDC PO SCH (08:43)
[2022-12-08] MEDS: LACTOBACILLUS RHAMNOSUS GG CAPSULE PO SCH (08:43)
[2022-12-08] MEDS: cefTRIAXone 2 GM in SODIUM CHLORIDE 0.9% MINIBAG 100 ML IV SCH (08:44)
[2022-12-08 09:11] VITALS: O2SAT 100
--- NOTE | 2022-12-08 11:51 | Discharge Plan ---
Discharge Plan Problem Reviewed?: Yes Disposition: Home, Self Care Condition: Good Diet: Regular Activity Restrictions: No Restrictions Shower Restrictions: No Driving Restrictions: No Weight Bearing: Full Weight Instruction Topics: E Coli Infec Ch Plan of Treatment: Please complete 7 more days Levofloxacin Drink plenty of fluid daily Assessment: Your bacteremia resolved repeat culture collected on 12/04 has no growth to date. And your last fever was on 12/06 midnight. No Smoking: If you smoke, Please STOP! Call for help.
--- NOTE | 2022-12-08 11:58 | DISCHARGE SUMMARY ---
Discharge Summary Admit Date: 12/03/22 Discharge Date: 12/08/22 Discharging Provider: Aubrey Aleman Condition at Discharge: Good Discharge Disposition: 01 Home, Self Care - DIAGNOSES Admission Diagnoses: Sepsis E. coli bacteremia Pyelonephritis Renal virus infection Discharge Diagnoses with Status of Each Condition: Sepsis resolved, E. coli bacteremia resolved Pyelonephritis resolved Rhinovirus infection resolved - HPI History of Present Illness: A 27 years old female with history of UTI from a kidney stone several years ago. She had bilateral wisdom tooth removal 4 days ago and have pain swollen locally. She also recently had an upper URI symptoms with nasal congestion and a cough. Patient presented to the ED 12/02/2022 with complaints of fever and malaise also left flank pain radiated to her left groin area. Her work-up shows she has rhinovirus positive had WBC 23.9 and a abnormal urine analysis leading to a CT abdomen pelvis scan that was read as having pyelonephritis. She was put on oral levofloxacin and was discharged to home. After just several hours the blood culture returned positive and she was contacted to come back into the ER. Patient was admitted 12/03/2022. At time of admission patient had fever 39.3, tachycardia with heart rate of 144. Blood pressure was in normal limits. Labs shows lactate acid normal, WBC 19. Blood culture shows E. coli positive. Patient was given Tylenol and started on IV ceftriaxone. - HOSPITAL COURSE Hospital Course: After admission patient was continued on ceftriaxone 2 g once a day, still has intermittent fever, the last fever was 12/06/2022 midnight, afebrile afterwards. Repeat culture on 12/05/2022 has no growth to date. Patient wisdom tooth local swollen gradually getting better with mouth wash and good oral hygiene. Her cough resolved. Patient is discharged on 12/08/2022, 48 hours after fever resolved. Patient was discharged to home in stable condition recommend patient to continue 7 days levofloxacin to complete the total treatment course of 14 days with consideration that this is her second UTI episode with in the year, also prolonged fever even on antibiotics. Recommend patient follow-up with her PCP for watching her recurrent UTIs. - ALLERGIES Allergies/Adverse Reactions: Allergies Allergy/AdvReac Type Severity Reaction Status Date / Time No Known Drug Allergies Allergy Verified 12/03/22 06:14 - MEDICATIONS Home Medications: Ambulatory Orders Medication Instructions Recorded Confirmed Ondansetron Odt [Zofran Odt] 4 mg TL Q6H PRN #14 tablet 12/02/22 12/03/22 levoFLOXacin [Levaquin] 500 mg PO QD 7 Days #28 tablet 12/08/22 12/03/22 - PHYSICAL EXAM AT DISCHARGE General Appearance: positive: No acute distress, Alert Eyes Bilateral: positive: PERRL, EOMI ENT: positive: No signs of dehydration Neck: positive: Nml inspection Respiratory: positive: No respiratory distress, Breath sounds nml Cardiovascular: positive: Regular rate & rhythm Abdomen: positive: Non-tender Skin: positive: Color nml, No rash Neurologic/Psychiatric: positive: Oriented x3 - LABS Result Diagrams: 12/08/22 05:19 12/08/22 05:19 - SEPSIS Current Stage of Sepsis: Sepsis Possible source of Sepsis: Genitourinary Sepsis Criteria: Recorded Temperature greater than 38.3C or Less than 36C, Recorded Heart Rate greater than 90 bpm, WBC count greater than 12,000 or less than 4000 - TIME SPENT Time Spent in Discharge (Minutes): 55
[2022-12-08 12:43] VITALS: BP 120/64
== END 2022-12-08 13:07 | disposition home or self-care (01) | DRG 872 ==
LOC: ED 05:38 → MS2 12:47
PROVIDERS: ADMIT Internal Medicine; ATTEND Internal Medicine
DX: A41.51 Sepsis due to Escherichia coli [E. coli] (principal); N12 Tubulo-interstitial nephritis, not specified as acute or chronic; B34.8 Other viral infections of unspecified site; Z87.442 Personal history of urinary calculi
CPT/HCPCS: 36415; 80048; 80053; 81001; 83605; 83690; 83735; 85025; 85610; 87040; 87077; 96365; 96366; 96375; 99284; 99285; A9270; 81003; 87086